=== PATIENT | female | born 1930 | race Caucasian/White ===

== ENCOUNTER 2017-11-09 11:46 | Emergency (ER) | payer OTHER ==
[~2017-11-09 11:46] MED LIST: ATORVASTATIN CA20 M1 PO; ATORVASTATIN CA40 M1 PO; CARVEDILOL12.5 M1 PO; CIPRO500 M1 PO; COLACE100 M1 PO; DICYCLOMINE HCL20 M1 PO; DILTIAZEM ER120 M2 PO; DURLAZA162.5 MG PO; ELIQUIS2.5 M1 PO; ELIQUIS5 M1 PO; FLAGYL250 M1 PO; JANUVIA100 M1 PO; LOSARTAN-HCTZ1 EACH PO; MECLIZINE HCL25 MG PO; METFORMIN HCL500 M4 PO; MINITRAN1 EAC2 TD; MONTELUKAST SOD10 M1 PO; OMEPRAZOLE20 M2 PO; PERCOCET 5-3251 EACH PO; SOTALOL80 M1 PO; TRADJENTA5 M1 PO
--- NOTE | 2017-11-09 11:58 | ED AMS/SEIZURE/WEAK/DIZZY ---
See Addendum History of Present Illness General Chief Complaint: Dizziness Stated Complaint: DIZZY Source: patient, family, PCP Exam Limitations: no limitations Vital Signs & Intake/Output Vital Signs & Intake/Output Vital Signs Date Time Temp Pulse Resp B/P B/P Pulse O2 O2 Flow FiO2 Mean Ox Delivery Rate 11/09 1341 98.8 98 18 134/64 99 11/09 1149 98.0 70 16 139/56 96 Room Air Allergies Coded Allergies: NO KNOWN ALLERGIES (11/26/11) NKA PER PERSANTINE ORDER SHEET - SJS Reconcile Medications Apixaban (Eliquis) 5 MG TABLET 1 TAB PO BID ATRIAL FIBRILLATION Atorvastatin Calcium 20 MG TABLET 1 TAB PO DAILY CHOLESTEROL (Reported) Carvedilol 25 MG TABLET 1 TAB PO BID HEART (Reported) Dicyclomine HCl 20 MG TABLET 1 TAB PO 4 TIMES/DAY PRN GI (Reported) Diltiazem HCl (Diltiazem 24HR ER) 180 MG CAP.ER.24H 1 CAP PO DAILY HEART ( Reported) Losartan/Hydrochlorothiazide (Losartan-Hctz 100-25 MG Tab) 100 MG-25 MG TABLET 1 TAB PO DAILY HEART (Reported) Melatonin 5 MG TABLET 1 TAB PO QPM SLEEP (Reported) Metformin HCl (Metformin HCl ER) 500 MG TAB.ER.24H 1 TAB PO DAILY DIABETES ( Reported) Montelukast Sodium 10 MG TABLET 1 TAB PO DAILY ALLERGIES (Reported) Omeprazole 20 MG CAPSULE.DR 1 CAP PO DAILY GI (Reported) Sitagliptin Phosphate (Januvia) 100 MG TABLET 1 TAB PO DAILY DIABETES ( Reported) Ubidecarenone (Co Q-10) 300 MG CAPSULE 1 CAP PO DAILY SUPPLEMENT (Reported) Triage Note: PER PT STARTED WITH DIZZYNESS WEDNESDAY WENT AWAY BUT CAME BACK THIS AM UNABLE TO STAND WELL, PT ALSO REPORTS RECENT FORGETFULNESS UNASURE WHY, WAS AT DR OFFICE THIS AM (DR SHARPE) BECAME SO DIZZY SENT TO ED FOR EVAL Triage Nurses Notes Reviewed? yes Onset: Abrupt Duration: day(s): (FEW) Timing: recent history Injury Environment: home Severity: mild, moderate Modifying Factors: Worsens With: movement. Associated Symptoms: ABDOMINAL PAIN HPI: This is an 87-year-old female with history of hypertension, dyslipidemia, vertigo, diabetes sent in by Dr. Jones office for chief complaint of dizziness on and off for the past several days. History of vertigo but she told the office staff that it felt different. She also complains of some right lower quadrant abdominal pain that has been on for a few days. No nausea or vomiting, fever or chills. No chest pain or shortness of breath. She states that she only feels dizzy when she gets up and walks around. No confusion or numbness or tingling. She denies any recent URI symptoms. She states that she only has a few pills of the medications that she takes for her vertigo but is unsure if she took them in the last few days. (Tabby Amezquita MD) Past History Travel History Traveled to [place] past 21 day No Medical History Any Pertinent Medical History? see below for history Neurological: vertigo EENT: NONE Cardiovascular: hypertension, hyperlipidemia Respiratory: NONE Gastrointestinal: GERD, irritable bowel syndrome Hepatic: NONE Renal: NONE Musculoskeletal: NONE Psychiatric: NONE Endocrine: diabetes History of MRSA: No History of VRE: No History of CDIFF: No Influenza Vaccine: 05/27/17 Surgical History Surgical History: appendectomy, hysterectomy Psychosocial History Who do you live with Patient/Self Services at Home None What is your primary language [place] Citizen Tobacco Use: Never used Family History Family History, If Any: Relation not specified for: *No pertinent family history Hx Contributory? No (Tabby Amezquita MD) Review of Systems Review of Systems Constitutional: Denies: chills, fever, malaise, weakness. EENTM: Reports: no symptoms. Respiratory: Reports: no symptoms. Cardiovascular: Reports: no symptoms. GI: Reports: abdominal pain. Denies: nausea, vomiting. Genitourinary: Reports: no symptoms. Musculoskeletal: Reports: no symptoms. Skin: Reports: no symptoms. Neurological/Psychological: Reports: see HPI (DIZZINESS). Hematologic/Endocrine: Denies: bruising, bleeding. Immunologic/Allergic: Reports: no symptoms. All Other Systems: Reviewed and Negative (Tabby Amezquita MD) Physical Exam Physical Exam General Appearance: well developed/nourished, alert, awake, mild distress Head: atraumatic, normal appearance Eyes: Bilateral: normal appearance, PERRL, EOMI, other (NO NYSTAGMUS). Ears, Nose, Throat: normal pharynx, hearing grossly normal Neck: normal inspection, supple, full range of motion Respiratory: normal breath sounds, chest non-tender, no respiratory distress Cardiovascular: regular rate/rhythm, normal peripheral pulses Gastrointestinal: normal bowel sounds, soft, tenderness (INIMAL RIGHT LOWER QUADRANT PA), NO REBOUND OR GUARDING Extremities: normal range of motion Neurologic/Psych: no motor/sensory deficits, awake, alert, oriented x 3 Skin: intact, normal color, warm/dry Core Measures ACS in differential dx? No CVA/TIA Diagnosis No Sepsis Present: No Sepsis Focused Exam Completed? No (Bia COLLINS,Tabby) Progress Differential Diagnosis: arrythmia, benign positional vertigo, CVA/stroke, dehydration, intracranial Hem., intracranial mass/tumor, presyncope, vertebrobasilar insuff Plan of Care: Orders Procedure Date/time Status URINALYSIS 11/09 1250 Complete TROPONIN LEVEL 11/09 1250 Complete COMPREHENSIVE METABOLIC PANEL 11/09 1250 Complete CBC WITHOUT DIFFERENTIAL 11/09 1250 Complete EKG 11/09 1148 Active Laboratory Tests 11/09/17 1416: Urine Color YEL, Urine Clarity CLEAR, Urine pH 7.0, Ur Specific King 1.010, Urine Protein NEG, Urine Ketones NEG, Urine Nitrite NEG, Urine Bilirubin NEG, Urine Urobilinogen 0.2, Ur Leukocyte Esterase NEG, Ur Microscopic EXAM NOT REQUIRED, Urine Hemoglobin NEG, Urine Glucose NEG 11/09/17 1258: Anion Gap 10, Estimated GFR > 60, BUN/Creatinine Ratio 41.3 H, Glucose 232 H, Calcium 9.3, Total Bilirubin 0.6, AST 18, ALT 28, Alkaline Phosphatase 85, Troponin I < 0.01, Total Protein 7.2, Albumin 3.8, Globulin 3.4, Albumin/ Globulin Ratio 1.1, CBC w Diff NO MAN DIFF REQ, RBC 3.31 L, MCV 102.6 H, MCH 35.2 H, MCHC 34.3, RDW 16.6 H, MPV 7.5, Gran % 79.5 H, Lymphocytes % 10.5 L, Monocytes % 8.5, Eosinophils % 1.4, Basophils % 0.1, Absolute Granulocytes 6.8 H, Absolute Lymphocytes 0.9 L, Absolute Monocytes 0.7 H, Absolute Eosinophils 0.1, Absolute Basophils 0 Diagnostic Imaging: Viewed by Me: CT Scan. Discussed w/RAD: CT Scan. Radiology Impression: PATIENT: KIERAN MONTALVO PRESENT AGE: 87 PATIENT ACCOUNT NO: [id number] : [birth year] LOCATION: [facility] ORDERING PHYSICIAN: Tabby Amezquita MD SERVICE DATE: 11/09/17 EXAM TYPE: CAT - CT ABD & PELVIS W/O IV CONTRAS EXAMINATION: CT ABDOMEN AND PELVIS WITHOUT CONTRAST CLINICAL INFORMATION: Right lower quadrant pain. COMPARISON: CT scan of the abdomen and pelvis dated 06/01/2017. TECHNIQUE: Multidetector volumetric imaging was performed from the superior aspect of the liver through the pubic symphysis. Sagittal and coronal reformatted images were obtained on the technologist's workstation. DLP: 303.3 mGy-cm FINDINGS: LUNG BASES: The visualized lung bases are unremarkable. LIVER, GALLBLADDER, AND BILIARY TREE: The liver is normal in size, shape, and attenuation. No focal hepatic lesion or biliary ductal dilatation is present. The gallbladder is surgically absent. PANCREAS: Unremarkable. SPLEEN: Unremarkable. ADRENAL GLANDS: Unremarkable. KIDNEYS AND URETERS: Stable bilateral renal cysts are present, in the mid and aspect of the right kidney and lower pole of the left No hydronephrosis, hydroureter, or calculi seen. No perinephric stranding. BLADDER: Unremarkable. GASTROINTESTINAL TRACT: The small bowel loops are unremarkable. Multiple diverticuli are present throughout the colon with no evidence of acute diverticulitis. The appendix is nonvisualized. ABDOMINAL WALL: No significant hernia is appreciated. LYMPH NODES : No lymphadenopathy is noted throughout.. VASCULAR: Calcified atherosclerotic plaque is present throughout the abdominal aorta, no aneurysmal dilation is noted. PELVIC VISCERA: Unremarkable. OSSEOUS STRUCTURES: Multilevel degenerative changes are present most prominent in the lumbar spine, no aggressive osseous lesions are noted. IMPRESSION: No acute findings are noted throughout, specifically no acute findings to suggest the etiology of the right lower quadrant pain are identified at this time. DICTATED BY: Albertina Huertas MD DATE/TIME DICTATED:11/09/171329 DRY YARD WORKER:EDUAR DATE/TIME TRANSCRIBED:11/09/171329 CONFIDENTIAL, DO NOT COPY WITHOUT APPROPRIATE AUTHORIZATION. <Electronically signed in Other Vendor System> SIGNED BY: Albertina Huertas MD 11/09/17 1343, PATIENT: KIERAN MONTALVO PRESENT AGE: 87 PATIENT ACCOUNT NO: [id number] : [birth year] LOCATION: ER ORDERING PHYSICIAN: Tabby Amezquita MD SERVICE DATE: 11/09/17-1154 EXAM TYPE: CAT - CT HEAD WO IV CONTRAST EXAMINATION: CT HEAD WITHOUT CONTRAST CLINICAL INFORMATION: Intractable dizziness, vertigo, and memory loss. Evaluate for cerebrovascular accident. COMPARISON: CT scan of the head 07/13/2016. TECHNIQUE: Contiguous axial imaging was performed from the skull base to vertex without intravenous administration of contrast. DLP: 620.91 mGy-cm FINDINGS: There is no acute intracranial hemorrhage or abnormal extra-axial collection. No intracranial mass effect or midline shift. Lateral and third ventricles are prominent and there is proportionate prominence of the subarachnoid spaces reflecting a moderate degree of global parenchymal volume loss. Ill-defined foci of hypoattenuation are visualized throughout the periventricular white matter that most likely represents a chronic manifestation of small vessel ischemia. Brice-white matter differentiation is otherwise grossly preserved and there is no evidence of acute territorial infarct. The calvarium and skull base are intact. Mastoid air cells and middle ear cavities are well aerated. The sphenoid sinus is nearly completely opacified. The remainder of the paranasal sinuses are well- aerated. IMPRESSION: There is moderate global parenchymal volume loss and numerous chronic small vessel ischemic changes throughout the periventricular white matter. Grossly no evidence of acute territorial infarct or hemorrhage. DICTATED BY: Nathanael Santos MD DATE/TIME DICTATED:11/09/171328 DRY YARD WORKER:EDUAR DATE/TIME TRANSCRIBED:11/09/171328 CONFIDENTIAL, DO NOT COPY WITHOUT APPROPRIATE AUTHORIZATION. <Electronically signed in Other Vendor System> SIGNED BY: Nathanael Santos MD 11/09/17 1341 Initial ED EKG: NSR Hand-Off Endorsed To: Waldemar Perez DO Endorsed Time: 1500 Pending: other (REEVALUATION AFTER IVF/MECLIZ) (Tabby Amezquita MD) Departure Departure Disposition: STILL A PATIENT Condition: Stable Clinical Impression Primary Impression: Dizziness Secondary Impressions: Abdominal pain, Dehydration Referrals: Adama Cabral MD (PCP/Family) Departure Forms: Customer Survey General Discharge Information (Tabby Amezquita MD) Departure Comments 11/09/17 3 PM The patient was signed out to me by Tabby Amezquita MD, reevaluate for vertigo. (Waldemar Perez DO)
[2017-11-09] MEDS ORDERED: ATORVASTATIN CA20 M1 PO (12:10)
[2017-11-09] MEDS ORDERED: CARVEDILOL25 M1 PO (12:11)
[2017-11-09] MEDS ORDERED: DILTIAZEM 24HR180 MG PO (12:12)
[2017-11-09] MEDS ORDERED: LOSARTAN-HCTZ1 EAC2 PO (12:12)
[2017-11-09] MEDS ORDERED: CO Q-10300 MG PO (12:13)
[2017-11-09] MEDS ORDERED: MELATONIN5 M7 PO (12:14)
[2017-11-09 13:07] LABS: ABSOLUTE BASOPHIL COUNT 0 /CUMM (0.0-0.2); ABSOLUTE EOSINOPHIL COUNT 0.1 /CUMM (0.0-0.7); ABSOLUTE GRANULOCYTE CT 6.8 /CUMM (1.4-6.5); ABSOLUTE LYMPH COUNT 0.9 /CUMM (1.2-3.4); ABSOLUTE MONOCYTE COUNT 0.7 /CUMM (0.10-0.60); BASOPHIL % 0.1 % (0.0-2.0); EOSINOPHIL % 1.4 % (0-5); GRANULOCYTE % 79.5 % (42.2-75.2); MEAN CORPUSCULAR HGB 35.2 PG (27.0-31.0); MEAN CORPUSCULAR HGB CONC 34.3 G/DL (33.0-37.0); MEAN CORPUSCULAR VOLUME 102.6 FL (81.0-99.0); MEAN PLATELET VOLUME 7.5 FL (7.4-10.4); PLATELET COUNT 271 /CUMM (130-400); RBC DISTRIBUTION WIDTH 16.6 % (11.5-14.5); RED BLOOD CELL CT 3.31 /CUMM (4.20-5.40); WHITE BLOOD CELL COUNT 8.5 /CUMM (4.8-10.8)
--- NOTE | 2017-11-09 13:41 | CT SCAN REPORT ---
EXAMINATION: CT HEAD WITHOUT CONTRAST CLINICAL INFORMATION: Intractable dizziness, vertigo, and memory loss. Evaluate for cerebrovascular accident. COMPARISON: CT scan of the head 07/13/2016. TECHNIQUE: Contiguous axial imaging was performed from the skull base to vertex without intravenous administration of contrast. DLP: 620.91 mGy-cm FINDINGS: There is no acute intracranial hemorrhage or abnormal extra-axial collection. No intracranial mass effect or midline shift. Lateral and third ventricles are prominent and there is proportionate prominence of the subarachnoid spaces reflecting a moderate degree of global parenchymal volume loss. Ill-defined foci of hypoattenuation are visualized throughout the periventricular white matter that most likely represents a chronic manifestation of small vessel ischemia. Brice-white matter differentiation is otherwise grossly preserved and there is no evidence of acute territorial infarct. The calvarium and skull base are intact. Mastoid air cells and middle ear cavities are well aerated. The sphenoid sinus is nearly completely opacified. The remainder of the paranasal sinuses are well-aerated. IMPRESSION: There is moderate global parenchymal volume loss and numerous chronic small vessel ischemic changes throughout the periventricular white matter. Grossly no evidence of acute territorial infarct or hemorrhage.
--- NOTE | 2017-11-09 13:43 | CT SCAN REPORT ---
EXAMINATION: CT ABDOMEN AND PELVIS WITHOUT CONTRAST CLINICAL INFORMATION: Right lower quadrant pain. COMPARISON: CT scan of the abdomen and pelvis dated 06/01/2017. TECHNIQUE: Multidetector volumetric imaging was performed from the superior aspect of the liver through the pubic symphysis. Sagittal and coronal reformatted images were obtained on the technologist's workstation. DLP: 303.3 mGy-cm FINDINGS: LUNG BASES: The visualized lung bases are unremarkable. LIVER, GALLBLADDER, AND BILIARY TREE: The liver is normal in size, shape, and attenuation. No focal hepatic lesion or biliary ductal dilatation is present. The gallbladder is surgically absent. PANCREAS: Unremarkable. SPLEEN: Unremarkable. ADRENAL GLANDS: Unremarkable. KIDNEYS AND URETERS: Stable bilateral renal cysts are present, in the mid and aspect of the right kidney and lower pole of the left No hydronephrosis, hydroureter, or calculi seen. No perinephric stranding. BLADDER: Unremarkable. GASTROINTESTINAL TRACT: The small bowel loops are unremarkable. Multiple diverticuli are present throughout the colon with no evidence of acute diverticulitis. The appendix is nonvisualized. ABDOMINAL WALL: No significant hernia is appreciated. LYMPH NODES: No lymphadenopathy is noted throughout.. VASCULAR: Calcified atherosclerotic plaque is present throughout the abdominal aorta, no aneurysmal dilation is noted. PELVIC VISCERA: Unremarkable. OSSEOUS STRUCTURES: Multilevel degenerative changes are present most prominent in the lumbar spine, no aggressive osseous lesions are noted. IMPRESSION: No acute findings are noted throughout, specifically no acute findings to suggest the etiology of the right lower quadrant pain are identified at this time.
[2017-11-09 16:45] VITALS: BP 126/82
== END 2017-11-09 18:45 ==
LOC: ERH 11:46
PROVIDERS: Emergency Medicine
DX: E86.0 Dehydration (principal); R42 Dizziness and giddiness; R10.31 Right lower quadrant pain
CPT/HCPCS: 74176; 81003; 93005; 93010; 96360

== ENCOUNTER 2018-02-27 13:07 | Emergency (ER) | payer OTHER ==
[~2018-02-27] VITALS: Ht 167.6 cm; Wt 61.7 kg
[~2018-02-27 13:07] MED LIST changes: +CARVEDILOL25 M1 PO; +CO Q-10300 MG PO; +DILTIAZEM 24HR180 MG PO; +LOSARTAN-HCTZ1 EAC2 PO; +MELATONIN5 M7 PO
--- NOTE | 2018-02-27 13:48 | ED GENERAL ADULT ---
History of Present Illness General Chief Complaint: General Adult Stated Complaint: HIGH BS TODAY Source: patient, old records Exam Limitations: no limitations Vital Signs & Intake/Output Vital Signs & Intake/Output Vital Signs Date Time Temp Pulse Resp B/P B/P Pulse O2 O2 Flow FiO2 Mean Ox Delivery Rate 02/27 1648 98.4 60 18 176/78 98 Room Air 02/27 1350 Room Air 02/27 1318 99.4 64 18 168/67 98 Room Air Allergies Coded Allergies: NO KNOWN ALLERGIES (11/26/11) NKA PER PERSANTINE ORDER SHEET - SJS Reconcile Medications Apixaban (Eliquis) 5 MG TABLET 1 TAB PO BID ATRIAL FIBRILLATION Atorvastatin Calcium 20 MG TABLET 1 TAB PO DAILY CHOLESTEROL (Reported) Carvedilol 25 MG TABLET 1 TAB PO BID HEART (Reported) Dicyclomine HCl 20 MG TABLET 1 TAB PO 4 TIMES/DAY PRN GI (Reported) Diltiazem HCl (Diltiazem 24HR ER) 180 MG CAP.ER.24H 1 CAP PO DAILY HEART ( Reported) Exenatide Microspheres (Bydureon Pen) (Unknown Strength) PEN.INJCTR (Unknown Dose) INJ QW UNKNOWN (Reported) Losartan/Hydrochlorothiazide (Losartan-Hctz 100-25 MG Tab) 100 MG-25 MG TABLET 1 TAB PO DAILY HEART (Reported) Melatonin 5 MG TABLET 1 TAB PO QPM SLEEP (Reported) Metformin HCl (Metformin HCl ER) 500 MG TAB.ER.24H 1 TAB PO DAILY DIABETES ( Reported) Montelukast Sodium 10 MG TABLET 1 TAB PO DAILY ALLERGIES (Reported) Omeprazole 20 MG CAPSULE.DR 1 CAP PO DAILY GI (Reported) Sitagliptin Phosphate (Januvia) 100 MG TABLET 1 TAB PO DAILY DIABETES ( Reported) Ubidecarenone (Co Q-10) 300 MG CAPSULE 1 CAP PO DAILY SUPPLEMENT (Reported) Triage Note: PT TO TRIAGE STATES THAT HER SUGAR HAS BEEN RUNNING HIGH, THIS AM OVER 400 PT IS NIDDM AND STATES THAT HER PMD STATED THAT HE MAY HAVE TO START HER ON INSULIN, FS AT TRIAGE 242. PT ALSO STATES THAT SHE HAS A HISTORY OF VERTIGO AND THAT SHE HAS BEEN FEELING DIZZY EVERYDAY, DENIES CP, ALSO COMPLAINS OF EXERTIONAL SOB, O2 SAT 98 % ON RA, DENIES COUGH, BUT STATES THAT SHE HAS ALLERGIES AND SNEEZES A LOT . Triage Nurses Notes Reviewed? yes Onset: Gradual Duration: day(s): Timing: recent history Injury Environment: home Severity: moderate HPI: 87YO FEMALE with hx of DM, HTN, vertio, IBS presents to ED complaining of hyperglycemia at home ealier today. She states that her primary care doctor has been managing her blood sugar has told her that she may require insulin due to her hyperglycemia. Today patient checked her blood sugar which was over 400. Patient also reports intermittent dizziness daily for the past several months, she is been told she has vertigo in the past, she is not any medication for this. Patient reports a fall associated with her dizziness about one week ago, she did not hit her head or lose consciousness, she reports no injury relating to the fall. Patient reports intermittent dyspnea with exertion and she also reports generalized abdominal pain that radiates up toward chest. She has intermittent episodes of these pains for several months which she attributes to her IBS. Patient states she had an episode earlier today prior to arrival. (Comfort Blake) Past History Travel History Traveled to [place] past 21 day No Medical History Any Pertinent Medical History? see below for history Neurological: vertigo EENT: NONE Cardiovascular: hypertension, hyperlipidemia Respiratory: NONE Gastrointestinal: GERD, irritable bowel syndrome Hepatic: NONE Renal: NONE Musculoskeletal: NONE Psychiatric: NONE Endocrine: diabetes History of MRSA: No History of VRE: No History of CDIFF: No Surgical History Surgical History: appendectomy, hysterectomy Psychosocial History Who do you live with Patient/Self Services at Home None What is your primary language Occitan Tobacco Use: Never used ETOH Use: denies use Illicit Drug Use: denies illicit drug use Family History Family History, If Any: Relation not specified for: *No pertinent family history Hx Contributory? No (Comfort Blake) Review of Systems Review of Systems Constitutional: Reports: see HPI. EENTM: Reports: no symptoms. Respiratory: Reports: see HPI. Cardiovascular: Reports: see HPI. GI: Reports: no symptoms. Genitourinary: Reports: no symptoms. Musculoskeletal: Reports: no symptoms. Skin: Reports: no symptoms. Neurological/Psychological: Reports: see HPI. Hematologic/Endocrine: Reports: see HPI. Immunologic/Allergic: Reports: no symptoms. All Other Systems: Reviewed and Negative (Comfort Blake) Physical Exam Physical Exam General Appearance: well developed/nourished, no apparent distress, alert, awake Head: atraumatic, normal appearance Eyes: Bilateral: normal appearance, PERRL, EOMI. Ears, Nose, Throat: normal pharynx, normal ENT inspection, hearing grossly normal Neck: normal inspection, supple, full range of motion, no midline tenderness Respiratory: normal breath sounds, no respiratory distress, lungs clear Cardiovascular: regular rate/rhythm, normal peripheral pulses Peripheral Pulses: 2+ radial (R), 2+ radial (L) Gastrointestinal: normal bowel sounds, soft, non-tender, no organomegaly Back: normal inspection, normal range of motion Extremities: normal inspection, normal range of motion Neurologic/Psych: awake, alert, oriented x 3, acupressurist II-XII nml as tested Skin: intact, normal color, warm/dry Core Measures ACS in differential dx? Yes CVA/TIA Diagnosis: No Sepsis Present: No Sepsis Focused Exam Completed? No (Munira NEAL,Comfort Contreras) Progress Differential Diagnoses I considered the following diagnoses in my evaluation of the patient: [ Hypoglycemia, electrolyte abnormality, intracranial hemorrhage/mass/lesion, vertigo, acute coronary syndrome] Plan of Care: Orders Procedure Date/time Status TROPONIN LEVEL 02/27 1640 Complete EKG 02/27 1640 Active URINALYSIS 02/27 133 Complete TROPONIN LEVEL 02/27 1330 Complete COMPREHENSIVE METABOLIC PANEL 02/27 133 Complete CBC WITHOUT DIFFERENTIAL 02/27 1330 Complete EKG 02/27 1330 Active Laboratory Tests 02/27/18 1633: Troponin I < 0.01 02/27/18 1420: Urine Color YEL, Urine Clarity CLEAR, Urine pH 6.5, Ur Specific Rumney 1.010, Urine Protein NEG, Urine Ketones NEG, Urine Nitrite NEG, Urine Bilirubin NEG, Urine Urobilinogen 0.2, Ur Leukocyte Esterase SMALL H, Ur Microscopic SEDIMENT EXAMINED, Urine RBC 1-3, Urine WBC 3-5 H, Ur Epithelial Cells RARE, Urine Bacteria FEW H, Urine Hemoglobin TRACE-INTACT, Urine Glucose NEG 02/27/18 1347: Anion Gap 11, Estimated GFR > 60, BUN/Creatinine Ratio 46.7 H, Glucose 219 H, Calcium 9.3, Total Bilirubin 0.8, AST 29, ALT 29, Alkaline Phosphatase 98, Troponin I < 0.01, Total Protein 7.4, Albumin 4.1, Globulin 3.3, Albumin/ Globulin Ratio 1.2, CBC w Diff NO MAN DIFF REQ, RBC 3.27 L, MCV 104.8 H, MCH 35.8 H, MCHC 34.1, RDW 17.0 H, MPV 8.1, Gran % 76.5 H, Lymphocytes % 11.0 L, Monocytes % 10.8 H, Eosinophils % 1.5, Basophils % 0.2, Absolute Granulocytes 5.4, Absolute Lymphocytes 0.8 L, Absolute Monocytes 0.8 H, Absolute Eosinophils 0.1, Absolute Basophils 0 Blood Sugar is stable at this time, no acute blood sugar reduction is necessary currently. Patient's labs are nonactionable, troponin enzyme negative, EKG in sinus rhythm. head CT scan shows no acute intracranial abnormality. Chest x-ray shows no abnormality. Given patient's chest/abdominal pain earlier today Will obtain repeat EKG and troponin. Patient has no abdominal tenderness, labs are stable, she has a history of IBS, patient had a abdominal CT scan within the past few months, for these reasons no repeat CT imaging of the abdomen was obtained today. Repeat EKG and troponin are stable. Patient is ambulatory here in the emergency Department without difficulty and without assistance. Patient typically dries and goes to the store on her own. I consult case management to see if we could provide the patient with home health services given her dizziness however patient is not a candidate for home health services. Patient to follow-up with her primary care doctor as well as leaf sorter Dr. Trejo regarding her blood sugar. He was given strict return precautions. The patient agrees with the plan of care. The patient was discussed with Dr. Velazquez who agrees with this plan. Diagnostic Imaging: Viewed by Me: Radiology Read, CT Scan. Discussed w/RAD: Radiology Read, CT Scan. Radiology Impression: PATIENT: KIERAN MONTALVO PRESENT AGE: 87 PATIENT ACCOUNT NO: [id number] : [birth year] LOCATION: [facility] ORDERING PHYSICIAN: Comfort NEAL SERVICE DATE: 02/27/18 EXAM TYPE: CAT - CT CERV SPINE WO IV CONTRAST; CT HEAD WO IV CONTRAST EXAMINATION: HEAD CT WITHOUT CONTRAST CERVICAL SPINE CT WITHOUT CONTRAST CLINICAL INFORMATION: Dizziness. Neck pain. Rule out fracture. Rule out intracranial hemorrhage. COMPARISON: Head CT dated 11/09/[address] dated 05/14/2013. TECHNIQUE: Contiguous axial imaging of the head was performed without the administration of IV contrast. Axial multidetector volumetric images were also performed through the cervical spine without contrast. Multiplanar reconstructed images in coronal and sagittal orientations were submitted. DOSE: 960.9 mGy-cm FINDINGS: HEAD: Assessment of the skull base is slightly limited due to patient motion. There is no evidence of acute intracranial hemorrhage or territorial infarction. No abnormal mass-effect or midline shift. No extra-axial fluid collections. Brice to white matter differentiation is well preserved. As on the prior study, there is relative enlargement of the lateral and third ventricles with proportional and prominence of the subarachnoid spaces, reflecting a moderate degree of parenchymal volume loss. Ill-defined foci of hypoattenuation in the subcortical and periventricular white matter are again noted and most likely due to chronic small vessel ischemia. The soft tissues and osseous structures are normal. Evaluation of the sinuses and mastoid air cells is limited by patient motion. CERVICAL SPINE: Vertebral body heights are normal. No fractures of the vertebral bodies or posterior elements. There is grade 2 anterolisthesis of C3 on C4 by 5 mm with severe bilateral facet arthropathy at C3-C4. There is more mild facet arthropathy at C2 on C3 (2 mm) with more moderate facet arthropathy bilaterally (right side greater than left). Reversal of the normal cervical lordosis at the level of C4-C5 is likely degenerative in nature. No acute malalignment is suspected. Degenerative changes and soft tissue calcification are present at the craniocervical and atlantoaxial articulations, though normal alignment is maintained. Intervertebral discs are narrowed at multiple levels with associated endplate and uncovertebral osteophytes. Degenerative disc disease is most severe at C3-C4, characterized by complete loss of intervertebral disc height, endplate sclerosis, endplate irregularity, and endplate osteophytes. More moderate degenerative disc disease is present at C4-C5 and C6-C7. Aside from the aforementioned facet arthropathy at C2-C3 and C3-C4, there is also marked facet arthropathy on the left at C4-C5. Mild canal narrowing is noted at C3-C4 and C4-C5 due to anterolisthesis of C3 on C4 and small posterior disc osteophytic protrusions. There is neural foraminal encroachment at C3-C4, C4-C5, and C6-C7 bilaterally. No significant paravertebral soft tissue swelling. Atherosclerotic calcifications are present in the carotid arteries. The thyroid gland is heterogeneously enlarged. A 2.3 cm nodule is present at the isthmus. Pleural parenchymal scarring is present at the lung apices. They specifically focus at the posterior aspect of the right lung apex is better seen on prior CT from 05/04/2015 and incompletely included on this study. IMPRESSION: 1. No acute intracranial pathology. Moderate global parenchymal volume loss with chronic small vessel ischemic changes in the periventricular white matter. Assessment of the skull base is somewhat limited due to motion artifact. 2. No acute fracture or acute malalignment in the cervical spine. 3. Severe degenerative disc disease and facet arthropathy at C3-C4 with grade 2 anterolisthesis of C3 on C4. This produces at least mild central canal narrowing and significant bilateral neural foraminal encroachment. More mild degrees of facet arthropathy and degenerative disease are present at other levels. DICTATED BY: Wes Sotelo MD DATE/TIME DICTATED:02/27/181634 HOOKER MACHINE TENDER:EDUAR DATE/TIME TRANSCRIBED:1634 CONFIDENTIAL, DO NOT COPY WITHOUT APPROPRIATE AUTHORIZATION. < Electronically signed in Other Vendor System> SIGNED BY: Wes Sotelo MD 02/27/18 165 CXR Impression: PATIENT: KIERAN MONTALVO PRESENT AGE: 87 PATIENT ACCOUNT NO: [id number] : [birth year] LOCATION: [facility] ORDERING PHYSICIAN: Comfort NEAL SERVICE DATE: 02/27/18 EXAM TYPE: RAD - XRY-CHEST XRAY, TWO VIEWS EXAMINATION: XR CHEST CLINICAL INFORMATION: Chest pain COMPARISON: June 02, 2017 and December 13, 2014 TECHNIQUE: 2 views of the chest were obtained. FINDINGS: Chronic scarring is seen within the right upper lobe. No acute parenchymal disease, pneumothorax, or pleural effusion. Heart normal size. No evidence of pulmonary edema. IMPRESSION: No acute disease. Right upper lobe pleural-parenchymal scarring. DICTATED BY: Dwaine Garcia MD DATE/TIME DICTATED:02/27/181506 HOOKER MACHINE TENDER:EDUAR DATE/TIME TRANSCRIBED:1506 CONFIDENTIAL, DO NOT COPY WITHOUT APPROPRIATE AUTHORIZATION. < Electronically signed in Other Vendor System> SIGNED BY: Dwaine Garcia MD 02/27/18 1512 Initial ED EKG: sinus rhythm @61bpm, LVH, nonspecific ST changes Prior EKG: unchanged (Comfort Blake) Departure Departure Disposition: HOME OR SELF CARE Condition: Stable Clinical Impression Primary Impression: Hyperglycemia Secondary Impressions: Abdominal pain Qualifiers: Abdominal location: generalized Qualified Code: R10.84 - Generalized abdominal pain Chest pain Qualifiers: Chest pain type: unspecified Qualified Code: R07.9 - Chest pain, unspecified Dizziness Referrals: Adama Cabral MD (PCP/Family) Additional Instructions: It is recommended for you to try lipo-flavonoid plus or dizziness. Follow-up with Dr. Trejo and your primary care doctor. Return if worsening symptoms or concerns. Please note that there might be incidental findings in your evaluation that are unrelated to the current emergency department visit. Please notify your primary care doctor about this emergency department visit in order to obtain and review all of the testing performed so that these incidental findings can be monitored as needed. If you had an x-ray performed, please understand that some fractures may not be seen on the initial set of x-rays. If your symptoms persist you might need a repeat set of x-rays to check for such a fracture. If you had a laceration evaluated, please understand that foreign bodies such as glass or wood may not be visible to the naked eye or on plain x-rays. If the wound becomes red, swollen, increasingly more painful or if there is any drainage from the wound, please have it reevaluated by a physician for the possibility of a retained foreign body. If you're unable to follow up as outlined in the discharge instructions please return to the emergency department. Thank you for choosing the [facility] Emergency Department for your care. It was a pleasure to serve you today. Departure Forms: Customer Survey General Discharge Information (Comfort Blake) PA/FAMILY MEDICINE CHAIR Co-Sign Statement Statement: ED Attending supervision documentation- x I saw and evaluated the patient. I have also reviewed all the pertinent lab results and diagnostic results. I agree with the findings and the plan of care as documented in the PA's/FAMILY MEDICINE CHAIR's documentation. [] I have reviewed the ED Record and agree with the PA's/FAMILY MEDICINE CHAIR's documentation. [] Additions or exceptions (if any) to the PAs/FAMILY MEDICINE CHAIR's note and plan are summarized below: [] (Marcus COLLINS,Lei) Critical Care Note Critical Care Note Critical Care Time: non-applicable (Comfort Blake)
[2018-02-27 13:59] LABS: ABSOLUTE BASOPHIL COUNT 0 /CUMM (0.0-0.2); ABSOLUTE EOSINOPHIL COUNT 0.1 /CUMM (0.0-0.7); ABSOLUTE GRANULOCYTE CT 5.4 /CUMM (1.4-6.5); ABSOLUTE LYMPH COUNT 0.8 /CUMM (1.2-3.4); ABSOLUTE MONOCYTE COUNT 0.8 /CUMM (0.10-0.60); BASOPHIL % 0.2 % (0.0-2.0); EOSINOPHIL % 1.5 % (0-5); GRANULOCYTE % 76.5 % (42.2-75.2); HEMATOCRIT 34.3 % (37-47); MEAN CORPUSCULAR HGB 35.8 PG (27.0-31.0); MEAN CORPUSCULAR HGB CONC 34.1 G/DL (33.0-37.0); MEAN CORPUSCULAR VOLUME 104.8 FL (81.0-99.0); MEAN PLATELET VOLUME 8.1 FL (7.4-10.4); PLATELET COUNT 231 /CUMM (130-400); RED BLOOD CELL CT 3.27 /CUMM (4.20-5.40)
[2018-02-27] MEDS ORDERED: BYDUREON P2 MG/0.65 INJ (14:25)
--- NOTE | 2018-02-27 15:12 | RADIOLOGY REPORT ---
EXAMINATION: XR CHEST CLINICAL INFORMATION: Chest pain COMPARISON: June 02, 2017 and December 13, 2014 TECHNIQUE: 2 views of the chest were obtained. FINDINGS: Chronic scarring is seen within the right upper lobe. No acute parenchymal disease, pneumothorax, or pleural effusion. Heart normal size. No evidence of pulmonary edema. IMPRESSION: No acute disease. Right upper lobe pleural-parenchymal scarring.
[2018-02-27 16:48] VITALS: BP 176/78
--- NOTE | 2018-02-27 16:52 | CT SCAN REPORT ---
EXAMINATION: HEAD CT WITHOUT CONTRAST CERVICAL SPINE CT WITHOUT CONTRAST CLINICAL INFORMATION: Dizziness. Neck pain. Rule out fracture. Rule out intracranial hemorrhage. COMPARISON: Head CT dated 11/09/[address] dated 05/14/2013. TECHNIQUE: Contiguous axial imaging of the head was performed without the administration of IV contrast. Axial multidetector volumetric images were also performed through the cervical spine without contrast. Multiplanar reconstructed images in coronal and sagittal orientations were submitted. DOSE: 960.9 mGy-cm FINDINGS: HEAD: Assessment of the skull base is slightly limited due to patient motion. There is no evidence of acute intracranial hemorrhage or territorial infarction. No abnormal mass-effect or midline shift. No extra-axial fluid collections. Brice to white matter differentiation is well preserved. As on the prior study, there is relative enlargement of the lateral and third ventricles with proportional and prominence of the subarachnoid spaces, reflecting a moderate degree of parenchymal volume loss. Ill-defined foci of hypoattenuation in the subcortical and periventricular white matter are again noted and most likely due to chronic small vessel ischemia. The soft tissues and osseous structures are normal. Evaluation of the sinuses and mastoid air cells is limited by patient motion. CERVICAL SPINE: Vertebral body heights are normal. No fractures of the vertebral bodies or posterior elements. There is grade 2 anterolisthesis of C3 on C4 by 5 mm with severe bilateral facet arthropathy at C3-C4. There is more mild facet arthropathy at C2 on C3 (2 mm) with more moderate facet arthropathy bilaterally (right side greater than left). Reversal of the normal cervical lordosis at the level of C4-C5 is likely degenerative in nature. No acute malalignment is suspected. Degenerative changes and soft tissue calcification are present at the craniocervical and atlantoaxial articulations, though normal alignment is maintained. Intervertebral discs are narrowed at multiple levels with associated endplate and uncovertebral osteophytes. Degenerative disc disease is most severe at C3-C4, characterized by complete loss of intervertebral disc height, endplate sclerosis, endplate irregularity, and endplate osteophytes. More moderate degenerative disc disease is present at C4-C5 and C6-C7. Aside from the aforementioned facet arthropathy at C2-C3 and C3-C4, there is also marked facet arthropathy on the left at C4-C5. Mild canal narrowing is noted at C3-C4 and C4-C5 due to anterolisthesis of C3 on C4 and small posterior disc osteophytic protrusions. There is neural foraminal encroachment at C3-C4, C4-C5, and C6-C7 bilaterally. No significant paravertebral soft tissue swelling. Atherosclerotic calcifications are present in the carotid arteries. The thyroid gland is heterogeneously enlarged. A 2.3 cm nodule is present at the isthmus. Pleural parenchymal scarring is present at the lung apices. They specifically focus at the posterior aspect of the right lung apex is better seen on prior CT from 05/04/2015 and incompletely included on this study. IMPRESSION: 1. No acute intracranial pathology. Moderate global parenchymal volume loss with chronic small vessel ischemic changes in the periventricular white matter. Assessment of the skull base is somewhat limited due to motion artifact. 2. No acute fracture or acute malalignment in the cervical spine. 3. Severe degenerative disc disease and facet arthropathy at C3-C4 with grade 2 anterolisthesis of C3 on C4. This produces at least mild central canal narrowing and significant bilateral neural foraminal encroachment. More mild degrees of facet arthropathy and degenerative disease are present at other levels.
== END 2018-02-27 17:45 ==
LOC: ERH 13:07
PROVIDERS: Physician Assistant
DX: E11.65 Type 2 diabetes mellitus with hyperglycemia (principal); R10.84 Generalized abdominal pain; R07.9 Chest pain, unspecified; R42 Dizziness and giddiness
CPT/HCPCS: 71046; 81001; 93005; 93010

== ENCOUNTER 2018-03-09 14:19 | Inpatient (IN) | payer OTHER ==
[~2018-03-09] VITALS: Ht 165.1 cm; Wt 55.4 kg
[~2018-03-09 14:19] MED LIST changes: +BYDUREON P2 MG/0.65 INJ; -DILTIAZEM 24HR180 MG PO
--- NOTE | 2018-03-09 14:34 | ED AMS/SEIZURE/WEAK/DIZZY ---
History of Present Illness General Chief Complaint: Dizziness Stated Complaint: DIZZY Source: patient Exam Limitations: no limitations Vital Signs & Intake/Output Vital Signs & Intake/Output Vital Signs Date Time Temp Pulse Resp B/P B/P Pulse O2 O2 Flow FiO2 Mean Ox Delivery Rate 03/09 1733 98.7 72 18 142/65 96 Room Air 03/09 1423 97.0 80 20 118/52 97 Room Air Allergies Coded Allergies: NO KNOWN ALLERGIES (11/26/11) NKA PER PERSANTINE ORDER SHEET - SJS Reconcile Medications Apixaban (Eliquis) 5 MG TABLET 1 TAB PO BID ATRIAL FIBRILLATION Atorvastatin Calcium 20 MG TABLET 1 TAB PO DAILY CHOLESTEROL (Reported) Carvedilol 25 MG TABLET 1 TAB PO BID HEART (Reported) Dicyclomine HCl 20 MG TABLET 1 TAB PO 4 TIMES/DAY PRN GI (Reported) Diltiazem HCl (Diltiazem 24HR ER) 180 MG CAP.ER.24H 1 CAP PO DAILY HEART ( Reported) Exenatide Microspheres (Bydureon Pen) (Unknown Strength) PEN.INJCTR (Unknown Dose) INJ QW UNKNOWN (Reported) Losartan/Hydrochlorothiazide (Losartan-Hctz 100-25 MG Tab) 100 MG-25 MG TABLET 1 TAB PO DAILY HEART (Reported) Melatonin 5 MG TABLET 1 TAB PO QPM SLEEP (Reported) Metformin HCl (Metformin HCl ER) 500 MG TAB.ER.24H 1 TAB PO DAILY DIABETES ( Reported) Montelukast Sodium 10 MG TABLET 1 TAB PO DAILY ALLERGIES (Reported) Omeprazole 20 MG CAPSULE.DR 1 CAP PO DAILY GI (Reported) Sitagliptin Phosphate (Januvia) 100 MG TABLET 1 TAB PO DAILY DIABETES ( Reported) Ubidecarenone (Co Q-10) 300 MG CAPSULE 1 CAP PO DAILY SUPPLEMENT (Reported) Triage Note: PT TO ED C/O FEELING DIZZY, WORSE THE LAST WEEK. H/O VERTIGO, HAS BEEN TAKING MEDS WITH NO RELIEF. PLACED IN W/C FOR COMFORT. Triage Nurses Notes Reviewed? yes Onset: Gradual Duration: constant Timing: remote history Severity: moderate Severity Numbers: 5 HPI: Patient is a 87-year-old female with a past medical history of hypertension hyperlipidemia vertigo GERD IBS and which old records indicate the patient was evaluated here 10 days ago for concerns of dizziness vertigo and elevated blood sugar, patient presents emergency room with continued room spinning sensation and vertigo and dizziness along with chronic right lower quadrant abdominal pain for the past 6 months. Patient states that she has had vertigo for approximately 2 years. Patient is also complaining of decreased by mouth intake due to persistent nausea. Patient denies any emesis. Patient was able tolerate breakfast this morning. No change in bowel habits denies any headache blurred vision facial droop neck pain or stiffness chest pain arm pain jaw pain dysuria hematuria vaginal bleeding or discharge. (Joshua Snow) Past History Travel History Traveled to [place] past 21 day No Medical History Any Pertinent Medical History? see below for history Neurological: vertigo EENT: NONE Cardiovascular: hypertension, hyperlipidemia Respiratory: NONE Gastrointestinal: GERD, irritable bowel syndrome Hepatic: NONE Renal: NONE Musculoskeletal: NONE Psychiatric: NONE Endocrine: diabetes History of MRSA: No History of VRE: No History of CDIFF: No Surgical History Surgical History: appendectomy, hysterectomy Psychosocial History Who do you live with Patient/Self Services at Home None What is your primary language Occitan Tobacco Use: Never used ETOH Use: denies use Illicit Drug Use: denies illicit drug use Family History Family History, If Any: Relation not specified for: *No pertinent family history Hx Contributory? No (Joshua Snow) Review of Systems Review of Systems Constitutional: Reports: no symptoms. EENTM: Reports: no symptoms. Respiratory: Reports: no symptoms. Cardiovascular: Reports: no symptoms. GI: Reports: see HPI, abdominal pain. Genitourinary: Reports: no symptoms. Musculoskeletal: Reports: no symptoms. Skin: Reports: no symptoms. Neurological/Psychological: Reports: no symptoms. Hematologic/Endocrine: Reports: no symptoms. Immunologic/Allergic: Reports: no symptoms. All Other Systems: Reviewed and Negative (Joshua Snow) Physical Exam Physical Exam General Appearance: no apparent distress, alert, comfortable Head: atraumatic Eyes: Bilateral: normal appearance, PERRL, EOMI. Ears, Nose, Throat: normal pharynx, normal ENT inspection, hearing grossly normal Neck: normal inspection Respiratory: normal breath sounds, chest non-tender, no respiratory distress Cardiovascular: regular rate/rhythm Gastrointestinal: normal bowel sounds, soft, non-tender Extremities: normal range of motion Neurologic/Psych: no motor/sensory deficits, awake, alert, oriented x 3, normal gait Skin: intact, normal color, warm/dry Core Measures ACS in differential dx? No CVA/TIA Diagnosis No Sepsis Present: No Sepsis Focused Exam Completed? No (Poly NEAL,Joshua) Progress Differential Diagnosis: arrythmia, alcohol intoxication, anemia, benign positional vertigo, CVA/stroke, dehydration, drug intoxication, encephalitis, electrolyte imbalance, GI bleed, hypoglycemia, hypoxia, intracranial Hem., intracranial mass/tumor, labrynthitis, meningitis, Meniere's disease, migraine SMALLS, multiple sclerosis, pneumonia, postural hypotension, presyncope, post- traumatic vertigo, sepsis, seizure disorder, subarachnoid Hem., UTI/pyelo, vertebrobasilar insuff Plan of Care: Orders Procedure Date/time Status Heart Healthy Diet 03/10 B Active ED Holding Orders 03/09 174 Active Admit to inpatient 03/09 174 Active Code Status 03/09 1742 Active Patient Data 03/09 1718 Active Add-on Test (ER Only) 03/09 1654 Active URINALYSIS 03/09 1606 Complete TROPONIN LEVEL 03/09 1537 Complete COMPREHENSIVE METABOLIC PANEL 03/09 1537 Complete CBC WITHOUT DIFFERENTIAL 03/09 1537 Complete EKG 03/09 1448 Active CULTURE,URINE 03/09 1409 Active Laboratory Tests 03/09/18 1614: Anion Gap 12, Estimated GFR > 60, BUN/Creatinine Ratio 31.4 H, Glucose 131 H, Calcium 9.3, Total Bilirubin 0.6, AST 25, ALT 33, Alkaline Phosphatase 89, Troponin I < 0.01, Total Protein 7.5, Albumin 4.2, Globulin 3.3, Albumin/ Globulin Ratio 1.3, CBC w Diff NO MAN DIFF REQ, RBC 3.69 L, MCV 105.0 H, MCH 35.4 H, MCHC 33.7, RDW 16.3 H, MPV 8.0, Gran % 79.6 H, Lymphocytes % 9.4 L, Monocytes % 10.2 H, Eosinophils % 0.6, Basophils % 0.2, Absolute Granulocytes 9.9 H, Absolute Lymphocytes 1.2, Absolute Monocytes 1.3 H, Absolute Eosinophils 0.1, Absolute Basophils 0 03/09/18 1407: Urine Color YEL, Urine Clarity HAZY H, Urine pH 6.0, Ur Specific [place] 1.010, Urine Protein NEG, Urine Ketones NEG, Urine Nitrite POS H, Urine Bilirubin NEG, Urine Urobilinogen 0.2, Ur Leukocyte Esterase MOD H, Ur Microscopic SEDIMENT EXAMINED, Urine WBC 5-10 H, Urine Bacteria MOD H, Urine Hemoglobin TRACE- INTACT, Urine Glucose NEG Microbiology 03/09 1409 URINE ROUT: Urine Culture - RECD Patient upon initial presentation is resting completely bedside no apparent distress patient had per old records from [address] of head and cervical spine there were unremarkable along with chest x-ray that was unremarkable patient was safely discharged home. Patient has no neurological or neurovascular deficit, moderate point tenderness to right lower quadrant however patient has remote appendectomy Patient declines pain medications when offered patient has unremarkable CT scan Patient is alert and oriented, CT scan was unremarkable however blood work is indicated a significant drop of sodium patient also has UTI Discussed admission with patient and family members were aware Diagnostic Imaging: Viewed by Me: CT Scan. Radiology Impression: no acute abnormality, no fracture Initial ED EKG: normal p-waves, normal QRS complex, 69 BPM,NSR Comments: PATIENT: KIERAN MONTALVO PRESENT AGE: 87 PATIENT ACCOUNT NO: [id number] : [birth year] LOCATION: [facility] ORDERING PHYSICIAN: Joshua NEAL SERVICE DATE: 03/09/18 EXAM TYPE: CAT - CT ABD & PELVIS W/O IV CONTRAS EXAMINATION: CT ABDOMEN AND PELVIS WITHOUT CONTRAST CLINICAL INFORMATION: Abdominal pain. COMPARISON: 11/09/2017. TECHNIQUE: Contiguous axial thin section helical images of the abdomen and pelvis were performed without oral or IV contrast. The data set was reformatted in the coronal and sagittal planes and reviewed on an independent workstation. DLP: 267 mGy-cm. FINDINGS: The visualized lung bases are clear. The visualized portions of the heart are unremarkable. The liver is of normal size and attenuation without focal lesions nor intrahepatic biliary ductal dilation. The patient is status post cholecystectomy. Surgical clips are present. The spleen, pancreas, adrenal glands are unremarkable. Both kidneys are of normal size and attenuation without hydronephrosis or nephrolithiasis. There is no abdominal free fluid. There is neither mesenteric nor retroperitoneal lymphadenopathy. There is sigmoid diverticulosis without evidence of diverticulitis; otherwise, unremarkable unopacified loops of small and large bowel are identified. There is no pelvic free fluid. The urinary bladder is unremarkable. There is neither pelvic nor inguinal lymphadenopathy. Bone windows: Neither sclerotic nor lytic bone lesions are identified. There is multilevel disc height loss. IMPRESSION: Sigmoid diverticulosis without evidence of diverticulitis. Status post cholecystectomy. DICTATED BY: David Figueroa MD DATE/TIME DICTATED:03/09/181613 DIRECTOR OF SPA AND GUEST EXPERIENCE:EDUAR (Joshua Snow) Departure Departure Disposition: STILL A PATIENT Condition: Stable Clinical Impression Primary Impression: Hyponatremia Secondary Impressions: Dizziness, UTI (urinary tract infection) Referrals: Adama Cabral MD (PCP/Family) Departure Forms: Customer Survey General Discharge Information Admission Note Spoke With: David Law MD Documentation of Exam: Documentation of any treatments & extenuating circumstances including Concerns Regarding Discharge (functional status, medication knowledge or non-compliance, living conditions, etc.) that warrant an admission rather than observation: [ Patient requires further evaluation of her acute hyponatremia repeat labs antibiotics IV fluids frequent neuro checks] (Joshua Snow) PA/STORAGE FACILITY HOUSEKEEPER Co-Sign Statement Statement: ED Attending supervision documentation- [] I saw and evaluated the patient. I have also reviewed all the pertinent lab results and diagnostic results. I agree with the findings and the plan of care as documented in the PA's/STORAGE FACILITY HOUSEKEEPER's documentation. [x] I have reviewed the ED Record and agree with the PA's/STORAGE FACILITY HOUSEKEEPER's documentation. [] Additions or exceptions (if any) to the PAs/STORAGE FACILITY HOUSEKEEPER's note and plan are summarized below: [] (Miguel Angel Berrios DO) Critical Care Note Critical Care Note Critical Care Time: 30-74 min (Joshua Snow)
[2018-03-09 16:22] LABS: ABSOLUTE BASOPHIL COUNT 0 /CUMM (0.0-0.2); ABSOLUTE EOSINOPHIL COUNT 0.1 /CUMM (0.0-0.7); ABSOLUTE GRANULOCYTE CT 9.9 /CUMM (1.4-6.5); ABSOLUTE LYMPH COUNT 1.2 /CUMM (1.2-3.4); ABSOLUTE MONOCYTE COUNT 1.3 /CUMM (0.10-0.60); BASOPHIL % 0.2 % (0.0-2.0); EOSINOPHIL % 0.6 % (0-5); GRANULOCYTE % 79.6 % (42.2-75.2); HEMATOCRIT 38.7 % (37-47); MEAN CORPUSCULAR HGB 35.4 PG (27.0-31.0); MEAN CORPUSCULAR HGB CONC 33.7 G/DL (33.0-37.0); PLATELET COUNT 300 /CUMM (130-400); RBC DISTRIBUTION WIDTH 16.3 % (11.5-14.5); RED BLOOD CELL CT 3.69 /CUMM (4.20-5.40); WHITE BLOOD CELL COUNT 12.4 /CUMM (4.8-10.8)
--- NOTE | 2018-03-09 16:28 | CT SCAN REPORT ---
EXAMINATION: CT ABDOMEN AND PELVIS WITHOUT CONTRAST CLINICAL INFORMATION: Abdominal pain. COMPARISON: 11/09/2017. TECHNIQUE: Contiguous axial thin section helical images of the abdomen and pelvis were performed without oral or IV contrast. The data set was reformatted in the coronal and sagittal planes and reviewed on an independent workstation. DLP: 267 mGy-cm. FINDINGS: The visualized lung bases are clear. The visualized portions of the heart are unremarkable. The liver is of normal size and attenuation without focal lesions nor intrahepatic biliary ductal dilation. The patient is status post cholecystectomy. Surgical clips are present. The spleen, pancreas, adrenal glands are unremarkable. Both kidneys are of normal size and attenuation without hydronephrosis or nephrolithiasis. There is no abdominal free fluid. There is neither mesenteric nor retroperitoneal lymphadenopathy. There is sigmoid diverticulosis without evidence of diverticulitis; otherwise, unremarkable unopacified loops of small and large bowel are identified. There is no pelvic free fluid. The urinary bladder is unremarkable. There is neither pelvic nor inguinal lymphadenopathy. Bone windows: Neither sclerotic nor lytic bone lesions are identified. There is multilevel disc height loss. IMPRESSION: Sigmoid diverticulosis without evidence of diverticulitis. Status post cholecystectomy.
--- NOTE | 2018-03-09 18:41 | History & Physical ---
Hollis Hobbs 03/09/18 184: General Information and HPI MD Statement: I have seen and personally examined KIERAN MONTALVO and documented this H&P. The patient is a 87 year old F who presented with a patient stated chief complaint of [vertigo, chronically]. Source of Information: patient Exam Limitations: confusion History of Present Illness: Ms Won is an 87F w/ PMH of HTN, HLD, Vertigo, GERD, IBS, Memory loss, Afib on eliquis recently evaluated for dizziness/vertigo/hyperglycemia in the ED presents with a 6month history of dizziness, spinning sensation like she is spinning around the room, nausea, 12 pound weight loss, RLQ tenderness and poor blood glucose control. Pt has baseline memory loss and was continually redirected during interview, preoccupied with if she has stomach cancer and if she can drive home. Pt states that the dizziness is not sudden onset but gradual , is only mildly relieved with meclizine, is associated w/ left neck pain, and is worse with movement. Pt states that she has fallen in the past due to the dizziness, with most recent fall 3-4 months ago after feeling dizzy in the garden. Pt does not experience auras or LOC with this dizziness. Has been to the ED back in October for the same complaint. Denies palpitations. States that she has lost some weight ~12 pounds over the past six months although states she is tolerating PO foods but has less of an appetite. Her in June and she states that she does not see family often, does not have a visiting nurse looking after her, feels sad at his passing. States she is compliant with her medications although has varied blood sugars from 100s-200s. Allergies: Denies Fam Hx: Denies Sx Hx: Hysterectomy Soc Hx: Denies smoking, denies alcohol use, denies recreation drug use. Worked at [employer]. ROS: POSITIVE: Weight loss 12 lbs, Nausea, Vertigo NEGATIVE: Fever/Chills/Chest Pain/Palpitations/SOB/Diarrhea/Vomiting/LE Edema/ Recent Trauma Allergies/Medications Allergies: Coded Allergies: NO KNOWN ALLERGIES (11/26/11) NKA PER PERSANTINE ORDER SHEET - S Home Med list Apixaban (Eliquis) 5 MG TABLET 1 TAB PO BID ATRIAL FIBRILLATION Atorvastatin Calcium 20 MG TABLET 1 TAB PO DAILY CHOLESTEROL (Reported) Carvedilol 25 MG TABLET 1 TAB PO BID HEART (Reported) Dicyclomine HCl 20 MG TABLET 1 TAB PO 4 TIMES/DAY PRN GI (Reported) Diltiazem HCl (Diltiazem 24HR ER) 180 MG CAP.ER.24H 1 CAP PO DAILY HEART ( Reported) Exenatide Microspheres (Bydureon Pen) (Unknown Strength) PEN.INJCTR (Unknown Dose) INJ QW UNKNOWN (Reported) Losartan/Hydrochlorothiazide (Losartan-Hctz 100-25 MG Tab) 100 MG-25 MG TABLET 1 TAB PO DAILY HEART (Reported) Melatonin 5 MG TABLET 1 TAB PO QPM SLEEP (Reported) Metformin HCl (Metformin HCl ER) 500 MG TAB.ER.24H 1 TAB PO DAILY DIABETES ( Reported) Montelukast Sodium 10 MG TABLET 1 TAB PO DAILY ALLERGIES (Reported) Omeprazole 20 MG CAPSULE.DR 1 CAP PO DAILY GI (Reported) Sitagliptin Phosphate (Januvia) 100 MG TABLET 1 TAB PO DAILY DIABETES ( Reported) Ubidecarenone (Co Q-10) 300 MG CAPSULE 1 CAP PO DAILY SUPPLEMENT (Reported) Past History Travel History Traveled to [place] past 21 day No Medical History Neurological: vertigo EENT: NONE Cardiovascular: hypertension, hyperlipidemia Respiratory: NONE Gastrointestinal: GERD, irritable bowel syndrome Hepatic: NONE Renal: NONE Musculoskeletal: NONE Psychiatric: NONE Endocrine: diabetes History of MRSA: No History of VRE: No History of CDIFF: No Surgical History Surgical History: appendectomy, hysterectomy Past Family/Social History Family History Relations & Conditions if any Relation not specified for: *No pertinent family history Psychosocial History Who Do You Live With? self Services at Home: None Primary Language: [place] ETOH Use: denies use Illicit Drug Use: denies illicit drug use Functional Ability ADLs Independent: dressing, eating, toileting, bathing. Review of Systems Review of Systems Constitutional: Reports: see HPI. Exam & Diagnostic Data Last 24 Hrs of Vital Signs/I&O Vital Signs Date Time Temp Pulse Resp B/P B/P Pulse O2 O2 Flow FiO2 Mean Ox Delivery Rate 03/09 2000 98.0 65 18 124/60 97 Room Air 03/09 1733 98.7 72 18 142/65 96 Room Air 03/09 1430 Room Air 03/09 1423 97.0 80 20 118/52 97 Room Air Intake & Output 03/09 1600 03/09 0800 03/09 0000 Intake Total Output Total Balance Patient 130 lb Weight Weight Estimated Measurement Method Physical Exam General Appearance Alert, Oriented X3, Cooperative, No Acute Distress Skin chronic venous stasis changes b/l LE Skin Temp/Moisture Exam: Warm/Dry Neck TTP, L paraspinal muscles Cardiovascular Regular Rate, Normal S1, Normal S2 Lungs Clear to Auscultation, Normal Air Movement Abdomen Soft, mild RLQ tenderness; questionably on ASIS vs Abdominal viscera Neurological Normal Speech, Cranial Nerves 3-12 NL Extremities No Edema Vascular Normal Pulses Last 24 Hrs of Labs/Dewayne: Laboratory Tests 03/09/18 1614: Anion Gap 12, Estimated GFR > 60, BUN/Creatinine Ratio 31.4 H, Glucose 131 H, Serum Osmolality 266 L, Uric Acid 4.2, Calcium 9.3, Phosphorus 3.6, Magnesium 1.7, Total Bilirubin 0.6, AST 25, ALT 33, Alkaline Phosphatase 89, Troponin I < 0.01, Total Protein 7.5, Albumin 4.2, Globulin 3.3, Albumin/Globulin Ratio 1.3, TSH 0.514, Thyroxine (T4) 9.4, Total T3 0.82 L, CBC w Diff NO MAN DIFF REQ, RBC 3.69 L, MCV 105.0 H, MCH 35.4 H, MCHC 33.7, RDW 16.3 H, MPV 8.0, Gran % 79.6 H, Lymphocytes % 9.4 L, Monocytes % 10.2 H, Eosinophils % 0.6, Basophils % 0.2, Absolute Granulocytes 9.9 H, Absolute Lymphocytes 1.2, Absolute Monocytes 1.3 H, Absolute Eosinophils 0.1, Absolute Basophils 0 03/09/18 1409: Urine Osmolality 253 L, Ur Random Creatinine 25.4, Ur Random Sodium 44, Ur Random Potassium 22.0, Fraction Sodium Excret 1.0 03/09/18 1407: Urine Color YEL, Urine Clarity HAZY H, Urine pH 6.0, Ur Specific [place] 1.010, Urine Protein NEG, Urine Ketones NEG, Urine Nitrite POS H, Urine Bilirubin NEG, Urine Urobilinogen 0.2, Ur Leukocyte Esterase MOD H, Ur Microscopic SEDIMENT EXAMINED, Urine WBC 5-10 H, Urine Bacteria MOD H, Urine Hemoglobin TRACE- INTACT, Urine Glucose NEG Microbiology 03/09 1409 URINE ROUT: Urine Culture - RECD Assessment/Plan Assessment: Ms. Montalvo is a 87 yo F w/ PMH of HTN, HLD, Vertigo, Gerd, IBS, and was recentely evaluated in ER for dizziness/vertigo/hyperglycemia, presented to ER w/ spinning sensation, vertigo, dizziness, along w/ chronic ELQ ab pain for the past 6 months; was found to be hyponatremic to 122, leukocytosis of 12.4, +LE/Nitrites/ WBC w. mod bacteria on UA. Problem List 1. Hyponatremia 2. UTI 3. Vertigo 4. RLQ abdominal pain -ve CT findings #Hyponatremia -Serum OSM<285, urine OSM >100, Urine sp grav 1.01, FeNa 1.0, Manas 44, use of Losartan/HCTZ w/ Hyponatremia, normal TSH, without signs of hypovolemia -Will fluid restrict to 1000 -F/u BEP -Nephrology consult -Hold diuretics #UTI -Was given 1g ceftriaxone in ED. Will switch to PO amoxicillin as this has less fluid, pt vitally stable. -Will f/u CBC to see if leukocytosis resolves #Vertigo -Neurology consult -Will continue with home meds; was given scopolamine, meclizine in ED -PT eval for unresolved vertigo, recent falls #Abdominal Pain RLQ -Pt has history of irritable bowel disease; CT scan negative; will continue serial abdominal exams -Per exam, questionably more pain on hip. Will avoid NSAIDs for now, monitor. #DM -No oral hypoglycemics. Will put on ISS. #HTN, HLD, GERD, IBS -Continue home meds DVT PPx IV access Full Code Fluid Restrict-1000cc Dispo As Ranked By This Provider Problem List: 1. UTI (urinary tract infection) 2. Hyponatremia Core Measures/Misc (05/09) Acute Coronary Syndrome ACS Diagnosis: No Congestive Heart Failure Congestive Heart Failure Diagnosis No Cerebrovascular Accident CVA/TIA Diagnosis: No VTE (View Protocol) VTE Risk Factors Age>40 No Mechanical VTE Prophylaxis d/t N/A MechProphylax Ordered No VTE Pharm Prophylaxis d/t NA PharmProphylax ordered Sepsis (View protocol) Sepsis Present: No If YES complete Sepsis Event Note If YES complete Sepsis Event Note Hannah Mckeon 03/09/18 2008: Core Measures/Misc (05/09) Sepsis (View protocol) If YES complete Sepsis Event Note If YES complete Sepsis Event Note Resident Review Statement Resident Statement: examined this patient, discussed with internet marketing specialist, agreed with internet marketing specialist, discussed with family, reviewed EMR data (avail), discussed with nursing , discussed with case mgmt, reviewed images, amended to note Other Findings: Ms. Montalvo is a 87 yo F w/ PMH of HTN, HLD, Vertigo, Gerd, IBS, and was recentely evaluated in ER for dizziness/vertigo/hyperglycemia, presented to ER w/ spinning sensation, vertigo, dizziness, along w/ chronic ELQ ab pain for the past [address] ab in ER which showed no acute process except sigmoidal diverticulosis without infection. Patient was also complaining of unresolved dizziness however she had no fall since last ER admission. During our clinical interaction, patient denied recent travel/sick contacts, fever/lightheadedness/diaphoresis/night sweat/weight change/cough/SOB/Chest Pain /Palpitation/bowel movement or urinary abnormality, or other skin/ musculoskeletal/neurological/mood disorders, or dietary/appetite change. -Smoking: never -Alcohol: never -Rec Drugs: never On admission, Vitals: stable afebrile, HR 72m RR 18, BP 142/65, 96% RA Physical exam -Gen.: AO x3, cooperative, no distress, -HEENT: NCAT, PERRL, EOMI, anicteric sclera, moist mucous membranes -Neck: Supple, no JVD, trachea midline, mild accessory respiratory muscle use -Cardio: Normal S1/S2 without significant murmurs/gallops/rubs -Pulmonary: grossly normal air movement w/ clear auscultation -Abdomen: Soft, nontender, nondistended, bowel sounds intact -Neuro: Awake and alert, cranial nerves II through XII grossly intact -Extremity: Normal pulses/capillary refill, some chronic venous stasis change but no cyanosis/clubbing/edema -CBC: Mild leukocytosis 12.4, H/H 14.1/40.7, PLT 300, with MCV 105 -BMP: Hyponatremia 122 of unclear etiology, CL 85, BUN 22, CR 2.7, glucose 131, -UA/Microbiology: Positive for leukoesterase/nitrites/WBC with moderate bacteria -Ab CT: Sigmoid diverticulosis without evidence of diverticulitis. Status post cholecystectomy. -EKG: NSR w/o significant ST-T abnormalities. -Last Echo: 05/2017 normal EF 70%. -Interventions in ER: Scopolamine patch/meclizine/Ativan 0.25/ceftriaxone 1 Problem list/Assessment/Hospital Course: #Hypotonic Hyponatremia, pending eval/rule out SIADH/Diuretic-induced Hyponatremia #UA +ve for LE/Nitrites/Bacteria w/o symptoms #Mild leukocytosis, reactive #Chronic Ab pain w/ -ve CT findings of acute etiology #PMH of HTN, HLD, Vertigo, Gerd, IBS - Admit to general medicine - Vitals per protocol, monitor I&O per protocol. - Novolog SS/AccuChek TIDAC. - Orthostatic Vital x 1 - Serum Osm <285, Urine OSM >100, U specifc grav 1.01, FeNa 1.0, Manas 44, use of Losartan/HCTZ w/ Hyponatremia, normal TSH, without signs of hypovolemia, thus at this point would need more workup. Eliquis, in rare cases, would also contribute to hyponatremia. Patient had no symptom at this point from hypoNa. - Pending Nephrology consult for hyponatremia. - Pending Neurology consult for unresolved vertigo. - Continue home meds except oral hypoglycemics and HCTZ - Will continue Amoxicillin for uncomplicated UTI - Pending urine culture - Pain per pathway DVT prophylaxis Eliquis + ALPS Diabetic Diet CC2 w/ fluid restriction 1000cc IV Access: Peripheral IV Full Code Thanh COLLINS,David 03/09/18 2303: Core Measures/Misc (05/09) Sepsis (View protocol) If YES complete Sepsis Event Note If YES complete Sepsis Event Note Attending MD Review Statement Attending Statement Attending MD Statement: examined this patient, discuss w/resident/PA/JUNIOR QA ANALYST, agreed w/resident/PA/JUNIOR QA ANALYST, discussed with family, reviewed EMR data (avail), discussed with nursing, reviewed images, amended to note Attending Assessment/Plan: The patient is an 87 yo female with h/o HTN, HL, Vertigo, IBS, afib (on Eliquis) , who presented in the EDfor evaluation of worsening vertigo that has been ongoing for several months. She also c/o some RLQ abdominal discomfort vertigo and 12 lb weight loss. She denies any LOC. This has been accompanied by poor blood sugar control. She has h/o hyponatremia, however on presentation had Na 122 (prior was 131 on03/05/18). Physical Exam: VS: T 97.0, P 80, R 20, BP 118/52, po 97% HEENT: eyes- PERRLA julio cesar- moist mucosa Neck: no JVD, no bruits Chest: clear Cor: RRR nl S1, S2 w/o murm Abd: BS+, soft NT, - masses or HSM Ext: no edema Impression/Plan: #Severe Vertigo- has been evaluated in past. Non-focal neurology exam. No nystagmus to suggest definite BPH. Hyponatremia may be contributing. This has been an ongoing problem for this patient and may have worsening in presence of hyponatremia, etc. Plan: Admit to medical floor. Review prior Neuro images and discuss. Neurology Consult. PT consult. #Hyponatremia- as above, baseline Na is 144, 31-136, now 122. Did get IV hydration in ED. Urine Na 44, U oxm >100, P osm < 285 on HCTZ. Appears euvolemic. Only new med is Eliquis which has had some reports of causing hyponatremie (0.21%), Plan: Agree with fluid restrict to 1000 cc/24 hours (did get fluid with IV antibiotic in ED as well). Nephrology consult- Dr. Madrid. Close follow-up of Na in morning. #UTI- on Ceftriaxone noted- 1 dose given in ED. Plan: Will Rx with Amoxaillin po pending urine culture (h/o Proteus in past that was sensitive) as appears to be uncomplicated UTI. Await urine C&S. #Atrial Fibrillation- HR stable. Plan: Continue Diltiazem/Apixaban. #EssentiaL HTN- Has been on Diltiazem/Losartan/HCTZ/Carvedilol. Plan: OK to hold HCTZ and give rest. #Hyperlipidemia- on Atorvastatin. Plan: Continue Atorvastatin. #DM2- sugars have been variable. Plan: Follow sugars and cover swtih insulin. Hold Sitabgliptin and Metformin. #GERD- on Omeprazole. Plan: Continue Omeprazole.
[2018-03-09 20:00] VITALS: BP 124/60
--- NOTE | 2018-03-10 06:04 | Admission Certification ---
Admission Certification Certification Statement - As attending physician, I certify that at the time of - admission, based on clinical presentation, severity of - symptoms, need for further diagnostic testing and - therapeutic interventions, and risk of adverse outcomes - without in-hospital treatment, in my clinical assessment, - this patient requires an acute hospital stay for a minimum - of two nights or longer. I have also considered psychsocial - factors such as support system, advanced age, financial - issues, cognitive issues, and failed out-patient treatments, - past re-admission history, safety of patient, and lack of - compliance as applicable. Specific rationale supporting this admission is: The patient presents with worsening vertigo and signficant worsening of hyponatremia (122). Needs admission for close observation of Na and evaluation by Nephrology & Neurology. PT evaluation. Treatment of UTI.
[2018-03-10 06:19] VITALS: BP 110/42
--- NOTE | 2018-03-10 07:13 | PN- Housestaff ---
Hollis Hobbs 03/10/18711: Subjective Follow-up For: Hyponatremia Subjective: Patient seen and examined at bedside. Patient states that she feels okay, continually asks about if Tylenol that she takes at night will cause her to have low salt. Patient also states that she is still dizzy, although is less dizzy when sitting still, more dizzy with movement. Also continues to complain of some right lower quadrant pain, although points towards the hip near the anterior superior iliac spine. Patient denies any pain, denies any falls, denies any urinary symptoms. No fever/chills/night sweats/chest pain/lower extremity edema Review of Systems Constitutional: Reports: see HPI. Objective Last 24 Hrs of Vital Signs/I&O Vital Signs Date Time Temp Pulse Resp B/P B/P Pulse O2 O2 Flow FiO2 Mean Ox Delivery Rate 03/10 06 98.0 69 20 110/42 96 Room Air 03/09 2000 98.0 65 18 124/60 97 Room Air 03/09 1733 98.7 72 18 142/65 96 Room Air 03/09 1430 Room Air 03/09 1423 97.0 80 20 118/52 97 Room Air Intake & Output 03/10 1600 03/10 0800 03/10 0000 Intake Total Output Total Balance Patient 125 lb Weight Weight Bed scale Measurement Method Physical Exam General Appearance: Alert, Oriented X3, Cooperative, No Acute Distress, anxious Skin: No Rashes Skin Temp/Moisture Exam: Warm/Dry Cardiovascular: Regular Rate, Normal S1, Normal S2 Lungs: Clear to Auscultation, Normal Air Movement Abdomen: Soft, RLQ tenderness; mild Neurological: Normal Speech, Strength at 5/5 X4 Ext, Sensation Intact Extremities: No Edema Vascular: Normal Pulses Current Medications: Current Medications Sig/Sheila Start time Last Medication Dose Route Stop Time Status Admin Acetaminophen 650 MG Q6P PRN 03/09 1915 AC PO Amlodipine Besylate 10 MG DAILY 03/11 09 UNVr PO Amoxicillin 500 MG TID 03/09 2100 AC 03/10 PO 03/11 1401 1307 Apixaban 2.5 MG BID 03/10 2100 UNVr PO Apixaban 5 MG BID 03/09 2100 DC 03/10 PO 09 Atorvastatin Calcium 20 MG 1700 03/10 1700 AC PO Carvedilol 25 MG BID 03/09 2100 AC 03/10 PO 0926 Ceftriaxone Sodium 0 .STK-MED ONE 03/09 1724 DC .ROUTE Ceftriaxone Sodium 1,000 MG ONCE ONE 03/09 1700 DC 03/09 IV 03/09 1701 1730 Dicyclomine HCl 20 MG 4 TIMES/DAY PRN 03/09 1930 AC PO Diltiazem HCl 180 MG DAILY 03/10 0900 DC 03/10 PO 0926 Insulin Aspart 0 TIDAC 03/10 0800 AC 03/10 SC 1307 Lorazepam 0.25 MG ONCE ONE 03/09 1600 DC 03/09 PO 03/09 1601 1631 Losartan Potassium 100 MG DAILY 03/10 0900 AC 03/10 PO 0926 Meclizine HCl 25 MG ONCE ONE 03/09 1600 DC 03/09 PO 03/09 1601 1631 Meclizine HCl 0 .STK-MED ONE 03/09 1559 NM PO Melatonin 5 MG QPM 03/09 2100 NM PO Melatonin 5 MG QPM PRN 03/09 2045 AC 03/09 PO 2244 Montelukast Sodium 10 MG DAILY 03/10 0900 03/10 PO 0926 Omeprazole 20 MG DAILY 03/10 0900 AC 03/10 PO 0926 Ondansetron HCl 4 MG ONCE ONE 03/09 1600 DC 03/09 PO 03/09 1601 1631 Ondansetron HCl 0 .STK-MED ONE 03/09 1559 NM PO Scopolamine HBr 1 PAT ONE ONE 03/09 1600 DC 03/09 TOP 03/09 1601 1631 Scopolamine HBr 0 .STK-MED ONE 03/[address] [facility] Last 24 Hrs of Lab/Dewayne Results Last 24 Hrs of Labs/Mics: Laboratory Tests 03/10/18 0634: Anion Gap 11, Estimated GFR > 60, BUN/Creatinine Ratio 27.5 H, Cortisol AM Sample 10.8, CBC w Diff NO MAN DIFF REQ, RBC 3.46 L, MCV 105.0 H, MCH 35.5 H, MCHC 33.8, RDW 16.4 H, MPV 8.6, Gran % 75.8 H, Lymphocytes % 10.3 L, Monocytes % 12.4 H, Eosinophils % 1.5, Basophils % 0, Absolute Granulocytes 6.1 , Absolute Lymphocytes 0.8 L, Absolute Monocytes 1.0 H, Absolute Eosinophils 0.1, Absolute Basophils 0 03/09/18 1614: Anion Gap 12, Estimated GFR > 60, BUN/Creatinine Ratio 31.4 H, Glucose 131 H, Serum Osmolality 266 L, Uric Acid 4.2, Calcium 9.3, Phosphorus 3.6, Magnesium 1.7, Total Bilirubin 0.6, AST 25, ALT 33, Alkaline Phosphatase 89, Troponin I < 0.01, Total Protein 7.5, Albumin 4.2, Globulin 3.3, Albumin/Globulin Ratio 1.3, TSH 0.514, Thyroxine (T4) 9.4, Total T3 0.82 L, CBC w Diff NO MAN DIFF REQ, RBC 3.69 L, MCV 105.0 H, MCH 35.4 H, MCHC 33.7, RDW 16.3 H, MPV 8.0, Gran % 79.6 H, Lymphocytes % 9.4 L, Monocytes % 10.2 H, Eosinophils % 0.6, Basophils % 0.2, Absolute Granulocytes 9.9 H, Absolute Lymphocytes 1.2, Absolute Monocytes 1.3 H, Absolute Eosinophils 0.1, Absolute Basophils 0 03/09/18 1409: Urine Osmolality 253 L, Ur Random Creatinine 25.4, Ur Random Sodium 44, Ur Random Potassium 22.0, Fraction Sodium Excret 1.0 03/09/18 1407: Urine Color YEL, Urine Clarity HAZY H, Urine pH 6.0, Ur Specific [place] 1.010, Urine Protein NEG, Urine Ketones NEG, Urine Nitrite POS H, Urine Bilirubin NEG, Urine Urobilinogen 0.2, Ur Leukocyte Esterase MOD H, Ur Microscopic SEDIMENT EXAMINED, Urine WBC 5-10 H, Urine Bacteria MOD H, Urine Hemoglobin TRACE- INTACT, Urine Glucose NEG Microbiology 03/09 1409 URINE ROUT: Urine Culture - RES GRAM NEGATIVE RODS Assessment/Plan Assessment: Ms. Upton is a 87 yo F w/ PMH of HTN, HLD, Vertigo, Gerd, IBS, and was recentely evaluated in ER for dizziness/vertigo/hyperglycemia, presented to ER w/ spinning sensation, vertigo, dizziness, along w/ chronic ELQ ab pain for the past 6 months; was found to be hyponatremic to 122, leukocytosis of 12.4, +LE/Nitrites/ WBC w. mod bacteria on UA. #Hyponatremia -Serum OSM<285, urine OSM >100, Urine sp grav 1.01, FeNa 1.0, Manas 44, use of Losartan/HCTZ w/ Hyponatremia, normal TSH, without signs of hypovolemia -Will fluid restrict to 1000cc -F/u BEP - Na from 122 to 125 today -Nephrology consult appreciated, will continue with fluid restrictions, q8 BMP, TTE and CXR -Hold diuretics #UTI - without suprapubic tenderness, leukocytosis - resolving -Was given 1g ceftriaxone in ED. Will switch to PO amoxicillin as this has less fluid, pt vitally stable. -WBC 12.4 --> 8.1 #Vertigo -Neurology consult - [facility] physiotherapy -Will continue with home meds; was given scopolamine, meclizine in ED -PT eval for unresolved vertigo, recent falls - states they will not see pt as she is funtionally at baseline #Abdominal Pain RLQ - stable -Pt has history of irritable bowel disease; CT scan negative; will continue serial abdominal exams -Per exam, questionably more pain on hip. Will avoid NSAIDs for now, monitor. #DM -No oral hypoglycemics. Will put on ISS. #HTN, HLD, GERD, IBS -Continue home meds DVT PPx IV access Full Code Fluid Restrict-1000cc Dispo Problem List: 1. Vertigo 2. UTI (urinary tract infection) Pain Ratin Pain Location: RLQ Pain Goal: Pain 4 or less Pain Plan: pathway Tomorrow's Labs & Rationales: BEP q8 to correct sodium no more than 7mEq/day KayleyNura oakleyeddie 03/10/18 1121: Attending MD Review Statement Attending Statement Attending MD Statement: examined this patient, discuss w/resident/PA/OUTPATIENT CODING SPECIALIST, agreed w/resident/PA/OUTPATIENT CODING SPECIALIST, discussed with family, reviewed EMR data (avail), discussed with nursing, discussed with case mgmt, reviewed images, amended to note Attending Assessment/Plan: Elderly female admitted here for dizziness and hyponatremia with UTI. Patient is on diuretics at home. Pateint NA 122>>125 on admission. She recently had chest xray and CT head negative for acute pathology. AAOX2 oriented, baseline. Afebrile. Urinalysis appear hazy and wbc. Diuretics are discontinued. Continue with antibtioic and follow urine culture. Nephrology consult for evalauiton of hyponatremia. Fluid restriction since admission, held diuretics Vertigo: Consider neurology consult if no improvement in dizziness. can trial of meclizine. Lives alone. Case management on board. gi/dvt prophyalxis full code
[2018-03-10 08:43] LABS: ABSOLUTE BASOPHIL COUNT 0 /CUMM (0.0-0.2); ABSOLUTE EOSINOPHIL COUNT 0.1 /CUMM (0.0-0.7); ABSOLUTE GRANULOCYTE CT 6.1 /CUMM (1.4-6.5); ABSOLUTE LYMPH COUNT 0.8 /CUMM (1.2-3.4); BASOPHIL % 0 % (0.0-2.0); EOSINOPHIL % 1.5 % (0-5); GRANULOCYTE % 75.8 % (42.2-75.2); HEMATOCRIT 36.3 % (37-47); MEAN CORPUSCULAR HGB 35.5 PG (27.0-31.0); MEAN CORPUSCULAR HGB CONC 33.8 G/DL (33.0-37.0); MEAN PLATELET VOLUME 8.6 FL (7.4-10.4); PLATELET COUNT 230 /CUMM (130-400); RBC DISTRIBUTION WIDTH 16.4 % (11.5-14.5); RED BLOOD CELL CT 3.46 /CUMM (4.20-5.40); WHITE BLOOD CELL COUNT 8.1 /CUMM (4.8-10.8)
--- NOTE | 2018-03-10 11:53 | Cons- Nephrology ---
See Addendum General Information and HPI Consulting Request Date of Consult: 03/10/18 Requested By: James Zaldivar MD Reason for Consult: Hyponatremia Source of Information: patient Exam Limitations: dementia History of Present Illness: The patient is an 87 y/o woman with a hx of HTN - on a thiazide diuretic, dementia, A fib on eliquis who presents with worsening vertigo. She was found to be hyponatremic on presentation for which Nephrology is consulted. The patient reports vertiginous symptoms for the last 6 months which have been worse in the last 2 weeks. She has had falls in the past as a result but none leading to LOC. She reports being compliant with her BP meds which include HCTZ. She denies decreased PO intake but has lost 12 lbs. She denies excessive fluid intake during this time. On presentation, BP 118/52 HR 80 - afebrile. Initial labs notable for Na 122 with glucose 131, K 4.3, serum osm 266, uric acid 4.2, AM Cortisol 10.8, TSH 0.514 with T4 9.4, and urine osm 253 with Manas [address] imaging of the A /P performed for additional complaint of abdominal pain - only notable for diverticulosis. In terms of treatment, not clear how much IVF she has gotten. She has been fluid restricted to 1L/day. Na now 125. UA suggestive of UTI for which she was started on Ceftriaxone. Allergies/Medications Allergies: Coded Allergies: NO KNOWN ALLERGIES (11/26/11) NKA PER PERSANTINE ORDER SHEET - [facility] Home Med List: Apixaban (Eliquis) 5 MG TABLET 1 TAB PO BID ATRIAL FIBRILLATION Atorvastatin Calcium 20 MG TABLET 1 TAB PO DAILY CHOLESTEROL (Reported) Carvedilol 25 MG TABLET 1 TAB PO BID HEART (Reported) Dicyclomine HCl 20 MG TABLET 1 TAB PO 4 TIMES/DAY PRN GI (Reported) Diltiazem HCl (Diltiazem 24HR ER) 180 MG CAP.ER.24H 1 CAP PO DAILY HEART ( Reported) Exenatide Microspheres (Bydureon Pen) (Unknown Strength) PEN.INJCTR (Unknown Dose) INJ QW UNKNOWN (Reported) Losartan/Hydrochlorothiazide (Losartan-Hctz 100-25 MG Tab) 100 MG-25 MG TABLET 1 TAB PO DAILY HEART (Reported) Melatonin 5 MG TABLET 1 TAB PO QPM SLEEP (Reported) Metformin HCl (Metformin HCl ER) 500 MG TAB.ER.24H 1 TAB PO DAILY DIABETES ( Reported) Montelukast Sodium 10 MG TABLET 1 TAB PO DAILY ALLERGIES (Reported) Omeprazole 20 MG CAPSULE.DR 1 CAP PO DAILY GI (Reported) Sitagliptin Phosphate (Januvia) 100 MG TABLET 1 TAB PO DAILY DIABETES ( Reported) Ubidecarenone (Co Q-10) 300 MG CAPSULE 1 CAP PO DAILY SUPPLEMENT (Reported) Current Medications: Current Medications Sig/Sheila Start time Last Medication Dose Route Stop Time Status Admin Acetaminophen 650 MG Q6P PRN 03/09 1915 AC PO Amoxicillin 500 MG TID 03/09 2100 AC 03/10 PO 03/11 1401 0927 Apixaban 5 MG BID 03/09 2100 AC 03/10 PO 0926 Atorvastatin Calcium 20 MG 1700 03/10 1700 AC PO Carvedilol 25 MG BID 03/09 2100 AC 03/10 PO 0926 Ceftriaxone Sodium 0 .STK-MED ONE 03/09 1724 DC .ROUTE Ceftriaxone Sodium 1,000 MG ONCE ONE 03/09 1700 DC 03/09 IV 03/09 1701 1730 Dicyclomine HCl 20 MG 4 TIMES/DAY PRN 03/09 1930 AC PO Diltiazem HCl 180 MG DAILY 03/10 09 AC 03/10 PO 0926 Insulin Aspart 0 TIDAC 03/10 0800 AC SC Lorazepam 0.25 MG ONCE ONE 03/09 1600 DC 03/09 PO 03/09 1601 1631 Losartan Potassium 100 MG DAILY 03/10 09 AC 03/10 PO 0926 Meclizine HCl 25 MG ONCE ONE 03/09 1600 DC 03/09 PO 03/09 1601 1631 Meclizine HCl 0 .STK-MED ONE 03/09 1559 DC PO Melatonin 5 MG QPM 03/09 2100 DC PO Melatonin 5 MG QPM PRN 03/09 2045 AC 03/09 PO 2244 Montelukast Sodium 10 MG DAILY 03/10 09 AC 03/10 PO 0926 Omeprazole 20 MG DAILY 03/10 0900 AC 03/10 PO 0926 Ondansetron HCl 4 MG ONCE ONE 03/09 1600 DC 03/09 PO 03/09 1601 1631 Ondansetron HCl 0 .STK-MED ONE 03/09 1559 DC PO Scopolamine HBr 1 PAT ONE ONE 03/09 1600 DC 03/09 TOP 03/09 1601 1631 Scopolamine HBr 0 .STK-MED ONE 03/09 1556 DC [facility] Review of Systems Review of Systems: Complete 14 point ROS neg except as per HPI - should note hx of dementia and tangential speech so ROS limited Past History Travel History Traveled to [place] past 21 day No Medical History Blood Transfusion Hx: No Neurological: vertigo EENT: allergies Cardiovascular: AFIB, hypertension, hyperlipidemia Respiratory: NONE Gastrointestinal: GERD, irritable bowel syndrome Hepatic: NONE Renal: NONE Musculoskeletal: NONE Psychiatric: NONE Endocrine: diabetes Blood Disorders: NONE Cancer(s): NONE PHYSICAL THERAPY AID/Reproductive: NONE Surgical History Surgical History: appendectomy, hysterectomy Family History Relations & Conditions If Any: Relation not specified for: *No pertinent family history Psychosocial History Where Do You Live? Home Who Do You Live With? self Services at Home: None Primary Language: Occitan Smoking Status: Never Smoked ETOH Use: denies use Illicit Drug Use: denies illicit drug use Functional Ability ADLs Independent: dressing, eating, toileting, bathing. Exam & Diagnostic Data Vital Signs and I&O Vital Signs Date Time Temp Pulse Resp B/P B/P Pulse O2 O2 Flow FiO2 Mean Ox Delivery Rate 03/10 0619 98.0 69 20 110/42 96 Room Air 03/09 2000 98.0 65 18 124/60 97 Room Air 03/09 1733 98.7 72 18 142/65 96 Room Air 03/09 1430 Room Air 03/09 1423 97.0 80 20 118/52 97 Room Air Intake & Output 03/10 0400 03/09 0400 03/08 0400 Intake Total Output Total Balance Patient 125 lb 130 lb Weight Weight Bed scale Estimated Measurement Method Physical Exam: Gen - ok appearing, pressured speech Head - NCAT Eyes - anicteric sclera, EOMI Neck - supple, no LAD CV - RRR, no m/r/g Chest - clear, no w/r/r Abd - soft, NTND Upper ext - warm, no edema Lower ext - warm, no edema Skin - no rash or jaundice Neuro - alert, conversive, tangential speech, difficult to determine orientation Results Pertinent Lab Results: Laboratory Tests 03/10 03/09 0634 1614 Chemistry Sodium (137 - 145 mmol/L) 125 L 122 L Potassium (3.5 - 5.1 mmol/L) 4.3 4.3 Chloride (98 - 107 mmol/L) 87 L 85 L Carbon Dioxide (22 - 30 mmol/L) 27 25 Anion Gap (5 - 16) 11 12 BUN (7 - 17 mg/dL) 22 H 22 H Creatinine (0.5 - 1.0 mg/dL) 0.8 0.7 Estimated GFR (>60 ml/min) > 60 > 60 BUN/Creatinine Ratio (7 - 25 %) 27.5 H 31.4 H Glucose (65 - 99 mg/dL) 131 H Serum Osmolality (285 - 295 MOSM/KG) 266 L Uric Acid (2.5 - 6.2 mg/dL) 4.2 Calcium (8.4 - 10.2 mg/dL) 9.3 Phosphorus (2.5 - 4.5 mg/dL) 3.6 Magnesium (1.6 - 2.3 mg/dL) 1.7 Total Bilirubin (0.2 - 1.3 mg/dL) 0.6 AST (14 - 36 U/L) 25 ALT (9 - 52 U/L) 33 Alkaline Phosphatase (<127 U/L) 89 Troponin I (< 0.11 ng/ml) < 0.01 Total Protein (6.3 - 8.2 g/dL) 7.5 Albumin (3.5 - 5.0 g/dL) 4.2 Globulin (1.9 - 4.2 gm/dL) 3.3 Albumin/Globulin Ratio (1.1 - 2.2 %) 1.3 TSH (0.270 - 4.200 uIU/mL) 0.514 Thyroxine (T4) (4.5 - 10.9 ug/dL) 9.4 Total T3 (0.97 - 1.69 ng/mL) 0.82 L Cortisol AM Sample (4.46 - 22.7 ug/dL) 10.8 Hematology CBC w Diff NO MAN DIFF REQ NO MAN DIFF REQ WBC (4.8 - 10.8 /CUMM) 8.1 12.4 H RBC (4.20 - 5.40 /CUMM) 3.46 L 3.69 L Hgb (12.0 - 16.0 G/DL) 12.3 13.1 Hct (37 - 47 %) 36.3 L 38.7 MCV (81.0 - 99.0 FL) 105.0 H 105.0 H MCH (27.0 - 31.0 PG) 35.5 H 35.4 H MCHC (33.0 - 37.0 G/DL) 33.8 33.7 RDW (11.5 - 14.5 %) 16.4 H 16.3 H Plt Count (130 - 400 /CUMM) 230 300 MPV (7.4 - 10.4 FL) 8.6 8.0 Gran % (42.2 - 75.2 %) 75.8 H 79.6 H Lymphocytes % (20.5 - 51.1 %) 10.3 L 9.4 L Monocytes % (1.7 - 9.3 %) 12.4 H 10.2 H Eosinophils % (0 - 5 %) 1.5 0.6 Basophils % (0.0 - 2.0 %) 0 0.2 Absolute Granulocytes (1.4 - 6.5 /CUMM) 6.1 9.9 H Absolute Lymphocytes (1.2 - 3.4 /CUMM) 0.8 L 1.2 Absolute Monocytes (0.10 - 0.60 /CUMM) 1.0 H 1.3 H Absolute Eosinophils (0.0 - 0.7 /CUMM) 0.1 0.1 Absolute Basophils (0.0 - 0.2 /CUMM) 0 0 03/09 03/09 1409 1407 Urines Urine Color (YEL,AMB,STR) YEL Urine Clarity (CLEAR) HAZY H Urine pH (5.0 - 8.0) 6.0 Ur Specific [place] (1.001 - 1.035) 1.010 Urine Protein (NEG,<30 MG/DL) NEG Urine Ketones (NEG) NEG Urine Nitrite (NEG) POS H Urine Bilirubin (NEG) NEG Urine Urobilinogen (0.1 - 1.0 EU/dl) 0.2 Ur Leukocyte Esterase (NEG) MOD H Ur Microscopic SEDIMENT EXAMINED Urine WBC (0 - 2 /HPF) 5-10 H Urine Bacteria (NEG/NONE) MOD H Urine Hemoglobin (NEG) TRACE-INTACT Urine Osmolality (300 - 1000 MOSM/KG) 253 L Ur Random Creatinine (mg/dL) 25.4 Ur Random Sodium (30 - 90 mmol/L) 44 Ur Random Potassium (mmol/L) 22.0 Fraction Sodium Excret (<1% %) 1.0 Urine Glucose (N MG/DL) NEG Imaging/Other Studies: CT reviewed Assessment/Plan Assessment/Recommendations Assessment: Hyponatremia - Hypo-osmolar - UOsm not maximally dilute suggestive of presence of ADH - not clear to me whether or not there is a hemodynamic stimulus for ADH secretion. Is improving with fluid restriction (which could be predicted by relatively low urine Na and K). No hx of tobacco use (lung ca a/w SIADH). No evidence of thyroid or adrenal disease based on labs. I'm a bit perplexed as to how to treat this but think that the current management with fluid restriction alone is reasonable. I do think it's worth checking a TTE to rule out CHF as a possible hemodynamic stimulus for ADH secretion. May consider chest imaging to rule out malignancy eventhough she's a non-smoker. There is no evidence of liver disease on imaging. Recommendations: -1L/day fluid restriction -OK to hold off on IVF for now -TTE, Chest X-ray -q8 BMP - goal correction 7meq/day Please call [phone] with ?'s
--- NOTE | 2018-03-10 13:06 | Cons- Neurology ---
General Information and HPI Consulting Request Date of Consult: 03/10/18 Requested By: Kayley COLLINS,James History of Present Illness: 87-year-old female whose history was obtained both from the patient, the chart and a close family member at the bedside. They described perhaps a two-year history of chronic dizzy sensations . When the patient gets dizzy, she becomes anxious and has prompted ER evaluation. There is been no recent trauma, fever, diplopia, dysarthria or appendicular symptomatology. She typically ambulates without appliance although does have a cane at home. The patient lives alone after the passing of her . Allergies/Medications Allergies: Coded Allergies: NO KNOWN ALLERGIES (11/26/11) NKA PER PERSANTINE ORDER SHEET - [facility] Home Med List: Apixaban (Eliquis) 5 MG TABLET 1 TAB PO BID ATRIAL FIBRILLATION Atorvastatin Calcium 20 MG TABLET 1 TAB PO DAILY CHOLESTEROL (Reported) Carvedilol 25 MG TABLET 1 TAB PO BID HEART (Reported) Dicyclomine HCl 20 MG TABLET 1 TAB PO 4 TIMES/DAY PRN GI (Reported) Diltiazem HCl (Diltiazem 24HR ER) 180 MG CAP.ER.24H 1 CAP PO DAILY HEART ( Reported) Exenatide Microspheres (Bydureon Pen) (Unknown Strength) PEN.INJCTR (Unknown Dose) INJ QW UNKNOWN (Reported) Losartan/Hydrochlorothiazide (Losartan-Hctz 100-25 MG Tab) 100 MG-25 MG TABLET 1 TAB PO DAILY HEART (Reported) Melatonin 5 MG TABLET 1 TAB PO QPM SLEEP (Reported) Metformin HCl (Metformin HCl ER) 500 MG TAB.ER.24H 1 TAB PO DAILY DIABETES ( Reported) Montelukast Sodium 10 MG TABLET 1 TAB PO DAILY ALLERGIES (Reported) Omeprazole 20 MG CAPSULE.DR 1 CAP PO DAILY GI (Reported) Sitagliptin Phosphate (Januvia) 100 MG TABLET 1 TAB PO DAILY DIABETES ( Reported) Ubidecarenone (Co Q-10) 300 MG CAPSULE 1 CAP PO DAILY SUPPLEMENT (Reported) Review of Systems Review of Systems: Notable for chronic dizzy sensations and arthralgias. There is been no fever, chills, rash, visual disturbance, slurring of speech, chest pain, vomiting, joint inflammation or abnormal bleeding Past History Travel History Traveled to [place] past 21 day No Medical History Blood Transfusion Hx: No Neurological: vertigo EENT: allergies Cardiovascular: AFIB, hypertension, hyperlipidemia Respiratory: NONE Gastrointestinal: GERD, irritable bowel syndrome Hepatic: NONE Renal: NONE Musculoskeletal: NONE Psychiatric: NONE Endocrine: diabetes Blood Disorders: NONE Cancer(s): NONE [employer]/Reproductive: NONE Surgical History Surgical History: appendectomy, hysterectomy Family History Relations & Conditions If Any: Relation not specified for: *No pertinent family history Psychosocial History Where Do You Live? Home Who Do You Live With? self Services at Home: None Primary Language: Salvadorean Smoking Status: Never Smoked ETOH Use: denies use Illicit Drug Use: denies illicit drug use Functional Ability ADLs Independent: dressing, eating, toileting, bathing. Exam & Diagnostic Data Vital Signs and I&O Vital Signs Date Time Temp Pulse Resp B/P B/P Pulse O2 O2 Flow FiO2 Mean Ox Delivery Rate 03/10 0619 98.0 69 20 110/42 96 Room Air 03/09 2000 98.0 65 18 124/60 97 Room Air 03/09 1733 98.7 72 18 142/65 96 Room Air 03/09 1430 Room Air 03/09 1423 97.0 80 20 118/52 97 Room Air Intake & Output 03/10 1600 03/10 0800 03/10 0000 Intake Total Output Total Balance Patient 125 lb Weight Weight Bed scale Measurement Method Pleasant, elderly, somewhat anxious female who was otherwise in no acute distress. She was awake, alert and cooperative. Speech was fluent. The head was normocephalic and atraumatic. Pupils were equal. Extraocular movements were full. There was no nystagmus. Facial strength and sensation was intact. Tongue was midline; there was no dysarthria. The motor examination showed no drift of the upper extremities. There was no focal or lateralizing weakness. Deep tendon reflexes were diffusely hypoactive. Plantar responses were flexor. There was no ataxia on [id number] testing. Joint position sense was intact. She was able to ambulate independently with a narrow base and reasonable arm swing. She was mildly tentative upon turning. Assessment/Plan Assessment: #1 chronic, subjective dizzy sensations and disequilibrium. Recent CT reported negative. #2 anxiety Recommendations: Would recommend physiotherapy evaluation and reassurance. Further neurologic workup will likely not alter management. Please feel free to call with any further questions. Consult Acknowledgment - Thank you for your consult request.
[2018-03-10] MEDS ORDERED: AMLODIPINE BESY10 M1 PO (13:34)
[2018-03-10] MEDS ORDERED: ELIQUIS2.5 M1 PO (13:34)
[2018-03-10 14:36] VITALS: BP 105/52
[2018-03-10 22:33] VITALS: BP 111/44
[2018-03-10 22:45] VITALS: BP 128/60
[2018-03-11 06:34] VITALS: BP 147/63
--- NOTE | 2018-03-11 07:13 | PN- Housestaff ---
See Addendum Subjective Follow-up For: Hyponatremia, UTI, Vertigo Subjective: Patient seen and examined at bedside. Patient continues to complain about right lower quadrant pain although continually points to her hip as opposed to belly. Patient continually talks about irritable bowel syndrome, asks if this can cause her vertigo. States that her vertigo has improved overnight. States that she does feel somewhat better, continue lasts about whether salt or milk can help with her hyponatremia. Reassured, easily redirectable. Denies fevers/chills/ night sweats/chest pain/abdominal pain/urinary symptoms/lower extremity edema Review of Systems Constitutional: Reports: see HPI. Objective Last 24 Hrs of Vital Signs/I&O Vital Signs Date Time Temp Pulse Resp B/P B/P Pulse O2 O2 Flow FiO2 Mean Ox Delivery Rate 03/11 0854 147/63 03/11 0853 147/63 03/11 0853 147/63 03/11 0634 97.9 62 20 147/63 96 Room Air 03/10 2245 66 128/60 03/10 2233 98.3 63 16 111/44 95 Room Air 03/10 2152 66 128/60 03/10 1436 98.0 63 16 105/52 97 Room Air Intake & Output 03/11 1600 03/11 0800 03/11 0000 Intake Total 100 450 Output Total 200 Balance 100 250 Intake, Oral 100 450 Output, Urine 200 Physical Exam General Appearance: Alert, Oriented X3, Cooperative, No Acute Distress Skin: No Rashes Skin Temp/Moisture Exam: Warm/Dry Cardiovascular: Regular Rate, Normal S1, Normal S2 Lungs: Clear to Auscultation, Normal Air Movement Abdomen: Soft, No Tenderness, RLQ/R HIP TENDERNESS Neurological: Normal Speech, Strength at 5/5 X4 Ext Extremities: No Edema Current Medications: Current Medications Sig/Sheila Start time Last Medication Dose Route Stop Time Status Admin Acetaminophen 650 MG Q6P PRN 03/09 1915 AC PO Amlodipine Besylate 10 MG DAILY 03/11 0900 AC 03/11 PO 0853 Amoxicillin 500 MG TID 03/09 2100 AC 03/11 PO 03/11 1401 0854 Apixaban 2.5 MG BID 03/10 2100 AC 03/11 PO 0854 Apixaban 5 MG BID 03/09 2100 DC 03/10 PO 0926 Atorvastatin Calcium 20 MG 1700 03/10 1700 AC 03/10 PO 1736 Carvedilol 25 MG BID 03/09 2100 AC 03/11 PO 0853 Dicyclomine HCl 20 MG 4 TIMES/DAY PRN 03/09 1930 AC 03/10 PO 2310 Diltiazem HCl 180 MG DAILY 03/10 0900 DC 03/10 PO 0926 Insulin Aspart 0 TIDAC 03/10 08 AC 03/11 SC 0853 Losartan Potassium 100 MG DAILY 03/10 09 AC 03/11 PO 0854 Melatonin 5 MG QPM PRN 03/09 2045 AC 03/10 PO 2310 Montelukast Sodium 10 MG DAILY 03/10 09 AC 03/11 PO 0854 Omeprazole 20 MG DAILY 03/10 09 AC 03/11 PO 0854 Patient Medication 1 ED ONE ONE 03/10 1800 DC 03/10 Teaching ED 03/10 1801 1900 Last 24 Hrs of Lab/[place] Results Last 24 Hrs of Labs/Mics: Laboratory Tests 03/11/18 06: Anion Gap 10, Estimated GFR > 60, BUN/Creatinine Ratio 36.7 H, Pro-B- Natriuretic Pept 216 H 03/10/181999: Anion Gap 9, Estimated GFR > 60, BUN/Creatinine Ratio 40.0 H Assessment/Plan Assessment: Ms. Upton is a 87 yo F w/ PMH of HTN, HLD, Vertigo, Gerd, IBS, and was recentely evaluated in ER for dizziness/vertigo/hyperglycemia, presented to ER w/ spinning sensation, vertigo, dizziness, along w/ chronic ELQ ab pain for the past 6 months; was found to be hyponatremic to 122, leukocytosis of 12.4, +LE/Nitrites/ WBC w. mod bacteria on UA. #Hyponatremia - resolving -Serum OSM<285, urine OSM >100, Urine sp grav 1.01, FeNa 1.0, Manas 44, use of Losartan/HCTZ w/ Hyponatremia, normal TSH, without signs of hypovolemia -Will fluid restrict to 800cc -F/u BEP - Na from 122->125->123->127 today. 2PM and 10PM BEP ordered. -Nephrology consult appreciated, will continue with fluid restrictions 800cc, q8 BMP -pro-BNP negative, no need for echo as not suspected HF -Hold diuretics #UTI - without suprapubic tenderness, leukocytosis - resolving -Was given 1g ceftriaxone in ED. Will switch to PO amoxicillin as this has less fluid, pt vitally stable. Currently on day 3 -WBC 12.4 --> 8.1 -Will f/u culture/sens; currently growing G- rods #Vertigo - stable -Neurology consult - [facility] physiotherapy -Will continue with home meds; was given scopolamine, meclizine in ED; on Dicyclomine currently -Watch with ambulation to prevent falls. -PT eval for unresolved vertigo, recent falls - states they will not see pt as she is funtionally at baseline #Abdominal Pain RLQ - stable -Pt has history of irritable bowel disease; CT scan negative; will continue serial abdominal exams -Per exam, questionably more pain on hip. Will avoid NSAIDs for now, monitor. #DM -No oral hypoglycemics. Will put on ISS. #HTN, HLD, GERD, IBS -Continue home meds DVT PPx IV access Full Code Fluid Restrict-800cc Dispo Problem List: 1. Vertigo 2. UTI (urinary tract infection) 3. Hyponatremia Pain Ratin Pain Location: RLQ/R hip Pain Goal: Pain 4 or less Pain Plan: pathway Tomorrow's Labs & Rationales: BEP- hyponatremia
--- NOTE | 2018-03-11 11:34 | PN- Nephrology ---
Assessment/Plan Nephrology Assessment: Hyponatremia - Hypo-osmolar - UOsm not maximally dilute suggestive of presence of ADH - not a clear hemodynamic stimulus for ADH secretion - likely SIADH. Slowly improving on fluid restriction. Addition of solute in the form of salt tabs should help her get above a sodium of 130. No evidence of thyroid or adrenal disease based on labs. Would check screening chest x-ray for malignancy. Suggestion: -800cc/day fluid restriction -Start 2g NaCl TID -Chest X-ray -Can likely hold off on TTE -q12 BMP - goal correction 7meq/day Please call [phone] with ?'s Subjective Subjective: Na 127 this AM Wants to discuss nephew's wedding Asking if she's going to be OK Asking why she's dizzy Objective Vital Signs and I&Os Vital Signs Date Time Temp Pulse Resp B/P B/P Pulse O2 O2 Flow FiO2 Mean Ox Delivery Rate 03/11 0854 147/63 03/11 0853 147/63 03/11 0853 147/63 03/11 0634 97.9 62 20 147/63 96 Room Air 03/10 2245 66 128/60 03/10 2233 98.3 63 16 111/44 95 Room Air 03/10 2152 66 128/60 03/10 1436 98.0 63 16 105/52 97 Room Air Intake & Output 03/11 1600 03/11 0400 03/10 1600 03/10 0400 03/09 1600 03/09 0400 Intake Total 100 450 600 Output Total 200 Balance 100 250 600 Intake, IV 0 Intake, Oral 100 450 600 Number 0 Bowel Movements Output, Urine 200 Patient 125 lb 130 lb Weight Weight Bed scale Estimated Measurement Method Physical Exam: Gen - ok appearing HEENT - supple CV - RRR, no m/r/g Chest - clear, no w/r/r Abd - soft, NTND Ext - warm, no edema Neuro - alert, oriented, tangential speech Current Medications: Current Medications Sig/Sheila Start time Last Medication Dose Route Stop Time Status Admin Acetaminophen 650 MG Q6P PRN 03/09 1915 AC PO Amlodipine Besylate 10 MG DAILY 03/11 0900 AC 03/11 PO 0853 Amoxicillin 500 MG TID 03/09 2100 AC 03/11 PO 03/11 1401 0854 Apixaban 2.5 MG BID 03/10 2100 AC 07/20 PO 0854 Apixaban 5 MG BID 03/09 2100 DC 03/10 PO 0926 Atorvastatin Calcium 20 MG 1700 03/10 1700 AC 03/10 PO 1736 Carvedilol 25 MG BID 03/09 2100 AC 03/11 PO 0853 Dicyclomine HCl 20 MG 4 TIMES/DAY PRN 03/09 1930 AC 03/10 PO 2310 Diltiazem HCl 180 MG DAILY 03/10 09 DC 03/10 PO 0926 Insulin Aspart 0 TIDAC 03/10 08 AC 03/11 SC 0853 Losartan Potassium 100 MG DAILY 03/10 09 AC 03/11 PO 0854 Melatonin 5 MG QPM PRN 03/09 2045 AC 03/10 PO 2310 Montelukast Sodium 10 MG DAILY 03/10 09 AC 03/11 PO 0854 Omeprazole 20 MG DAILY 03/10 09 AC 03/11 PO 0854 Patient Medication 1 ED ONE ONE 03/10 1800 DC 03/10 Teaching ED 03/10 1801 1900 Sodium Chloride 2,000 MG TID 03/11 1400 UNVr PO Results Pertinent Lab Results: Laboratory Tests 03/11 03/10 03/10 061999 0634 Chemistry Sodium (137 - 145 mmol/L) 127 L 123 L 125 L Potassium (3.5 - 5.1 mmol/L) 4.4 4.6 4.3 Chloride (98 - 107 mmol/L) 92 L 89 L 87 L Carbon Dioxide (22 - 30 mmol/L) 25 24 27 Anion Gap (5 - 16) 10 9 11 BUN (7 - 17 mg/dL) 22 H 28 H 22 H Creatinine (0.5 - 1.0 mg/dL) 0.6 0.7 0.8 Estimated GFR (>60 ml/min) > 60 > 60 > 60 BUN/Creatinine Ratio (7 - 25 %) 36.7 H 40.0 H 27.5 H Bzp-O-Zubkeuppohr Pept (<125 pg/mL) 216 H Cortisol AM Sample (4.46 - 22.7 ug/dL) 10.8 Hematology CBC w Diff NO MAN DIFF REQ WBC (4.8 - 10.8 /CUMM) 8.1 RBC (4.20 - 5.40 /CUMM) 3.46 L Hgb (12.0 - 16.0 G/DL) 12.3 Hct (37 - 47 %) 36.3 L MCV (81.0 - 99.0 FL) 105.0 H MCH (27.0 - 31.0 PG) 35.5 H MCHC (33.0 - 37.0 G/DL) 33.8 RDW (11.5 - 14.5 %) 16.4 H Plt Count (130 - 400 /CUMM) 230 MPV (7.4 - 10.4 FL) 8.6 Gran % (42.2 - 75.2 %) 75.8 H Lymphocytes % (20.5 - 51.1 %) 10.3 L Monocytes % (1.7 - 9.3 %) 12.4 H Eosinophils % (0 - 5 %) 1.5 Basophils % (0.0 - 2.0 %) 0 Absolute Granulocytes (1.4 - 6.5 /CUMM) 6.1 Absolute Lymphocytes (1.2 - 3.4 /CUMM) 0.8 L Absolute Monocytes (0.10 - 0.60 /CUMM) 1.0 H Absolute Eosinophils (0.0 - 0.7 /CUMM) 0.1 Absolute Basophils (0.0 - 0.2 /CUMM) 0 03/09 03/09 1614 1409 Chemistry Sodium (137 - 145 mmol/L) 122 L Potassium (3.5 - 5.1 mmol/L) 4.3 Chloride (98 - 107 mmol/L) 85 L Carbon Dioxide (22 - 30 mmol/L) 25 Anion Gap (5 - 16) 12 BUN (7 - 17 mg/dL) 22 H Creatinine (0.5 - 1.0 mg/dL) 0.7 Estimated GFR (>60 ml/min) > 60 BUN/Creatinine Ratio (7 - 25 %) 31.4 H Glucose (65 - 99 mg/dL) 131 H Serum Osmolality (285 - 295 MOSM/KG) 266 L Uric Acid (2.5 - 6.2 mg/dL) 4.2 Calcium (8.4 - 10.2 mg/dL) 9.3 Phosphorus (2.5 - 4.5 mg/dL) 3.6 Magnesium (1.6 - 2.3 mg/dL) 1.7 Total Bilirubin (0.2 - 1.3 mg/dL) 0.6 AST (14 - 36 U/L) 25 ALT (9 - 52 U/L) 33 Alkaline Phosphatase (<127 U/L) 89 Troponin I (< 0.11 ng/ml) < 0.01 Total Protein (6.3 - 8.2 g/dL) 7.5 Albumin (3.5 - 5.0 g/dL) 4.2 Globulin (1.9 - 4.2 gm/dL) 3.3 Albumin/Globulin Ratio (1.1 - 2.2 %) 1.3 TSH (0.270 - 4.200 uIU/mL) 0.514 Thyroxine (T4) (4.5 - 10.9 ug/dL) 9.4 Total T3 (0.97 - 1.69 ng/mL) 0.82 L Hematology CBC w Diff NO MAN DIFF REQ WBC (4.8 - 10.8 /CUMM) 12.4 H RBC (4.20 - 5.40 /CUMM) 3.69 L Hgb (12.0 - 16.0 G/DL) 13.1 Hct (37 - 47 %) 38.7 MCV (81.0 - 99.0 FL) 105.0 H MCH (27.0 - 31.0 PG) 35.4 H MCHC (33.0 - 37.0 G/DL) 33.7 RDW (11.5 - 14.5 %) 16.3 H Plt Count (130 - 400 /CUMM) 300 MPV (7.4 - 10.4 FL) 8.0 Gran % (42.2 - 75.2 %) 79.6 H Lymphocytes % (20.5 - 51.1 %) 9.4 L Monocytes % (1.7 - 9.3 %) 10.2 H Eosinophils % (0 - 5 %) 0.6 Basophils % (0.0 - 2.0 %) 0.2 Absolute Granulocytes (1.4 - 6.5 /CUMM) 9.9 H Absolute Lymphocytes (1.2 - 3.4 /CUMM) 1.2 Absolute Monocytes (0.10 - 0.60 /CUMM) 1.3 H Absolute Eosinophils (0.0 - 0.7 /CUMM) 0.1 Absolute Basophils (0.0 - 0.2 /CUMM) 0 Urines Urine Osmolality (300 - 1000 MOSM/KG) 253 L Ur Random Creatinine (mg/dL) 25.4 Ur Random Sodium (30 - 90 mmol/L) 44 Ur Random Potassium (mmol/L) 22.0 Fraction Sodium Excret (<1% %) 1.0 03/09 1407 Urines Urine Color (YEL,AMB,STR) YEL Urine Clarity (CLEAR) HAZY H Urine pH (5.0 - 8.0) 6.0 Ur Specific Hensley (1.001 - 1.035) 1.010 Urine Protein (NEG,<30 MG/DL) NEG Urine Ketones (NEG) NEG Urine Nitrite (NEG) POS H Urine Bilirubin (NEG) NEG Urine Urobilinogen (0.1 - 1.0 EU/dl) 0.2 Ur Leukocyte Esterase (NEG) MOD H Ur Microscopic SEDIMENT EXAMINED Urine WBC (0 - 2 /HPF) 5-10 H Urine Bacteria (NEG/NONE) MOD H Urine Hemoglobin (NEG) TRACE-INTACT Urine Glucose (N MG/DL) NEG Imaging/Other Studies: EXAM TYPE: CAT - CT ABD & PELVIS W/O IV CONTRAS EXAMINATION: CT ABDOMEN AND PELVIS WITHOUT CONTRAST CLINICAL INFORMATION: Abdominal pain. COMPARISON: 11/09/2017. TECHNIQUE: Contiguous axial thin section helical images of the abdomen and pelvis were performed without oral or IV contrast. The data set was reformatted in the coronal and sagittal planes and reviewed on an independent workstation. DLP: 267 mGy-cm. FINDINGS: The visualized lung bases are clear. The visualized portions of the heart are unremarkable. The liver is of normal size and attenuation without focal lesions nor intrahepatic biliary ductal dilation. The patient is status post cholecystectomy. Surgical clips are present. The spleen, pancreas, adrenal glands are unremarkable. Both kidneys are of normal size and attenuation without hydronephrosis or nephrolithiasis. There is no abdominal free fluid. There is neither mesenteric nor retroperitoneal lymphadenopathy. There is sigmoid diverticulosis without evidence of diverticulitis; otherwise, unremarkable unopacified loops of small and large bowel are identified. There is no pelvic free fluid. The urinary bladder is unremarkable. There is neither pelvic nor inguinal lymphadenopathy. Bone windows: Neither sclerotic nor lytic bone lesions are identified. There is multilevel disc height loss. IMPRESSION: Sigmoid diverticulosis without evidence of diverticulitis. Status post cholecystectomy.
[2018-03-11] MEDS ORDERED: COZAAR100 M1 PO (13:55)
--- NOTE | 2018-03-11 13:58 | Patient Discharge Instructions ---
Discharge Instructions General Discharge Information You were seen/treated for: HYPONATREMIA, VERTIGO Special Instructions: - Please follow up with your primary care physician within 1-2 weeks of discharge. Inform your primary care physician of this admission to [facility]. - Continue your current medications per discharge instructions. - Please watch for these problems: Fever, Chills, Nausea, Vomiting, Shortness of Breath, Productive Cough, Chest Pain/Discomfort, Abdominal Pain, Active Bleeding or Bloody urine/stool. Acute Coronary Syndrome Inclusion Criteria At DC or during hospital stay patient has or had the following: ACS DIAGNOSIS No Discharge Core Measures Meds if any: Prescribed or Continued at Discharge Meds if any: NOT Prescribed or Continued at Discharge Congestive Heart Failure Inclusion Criteria At DC or during hospital stay patient has or had the following: CHF DIAGNOSIS No Discharge Core Measures Meds if any: Prescribed or Continued at Discharge Meds if any: NOT Prescribed or Continued at Discharge Cerebrovascular accident Inclusion Criteria At DC or during hospital stay patient has or had the following: CVA/TIA Diagnosis No Discharge Core Measures Meds if any: Prescribed or Continued at Discharge Meds if any: NOT Prescribed or Continued at Discharge Venous thromboembolism Inclusion Criteria VTE Diagnosis No VTE Type NONE VTE Confirmed by (Test) NONE Discharge Core Measures - Per Current guidelines, there needs to be overlap - treatment for the first 5 days of Warfarin therapy. - If discharged on Warfarin prior to 5 days of - overlap therapy, the patient will need to be - assessed for post discharge needs including - *Post discharge parental anticoagulation - *Warfarin and/or parental anticoagulation education - *Follow up date to check INR post discharge At least 5 days overlap therapy as Inpatient No Meds if any: Prescribed or Continued at Discharge Note: Overlap Therapy is Warfarin and Anticoagulant Meds if any: NOT Prescribed or Continued at Discharge
[2018-03-11 15:10] VITALS: BP 108/82
[2018-03-12 06:12] VITALS: BP 152/58
--- NOTE | 2018-03-12 08:38 | PN- Housestaff ---
Francia COLLINS,Ashley 03/12/18 0838: Subjective Follow-up For: Hyponatremia Complaints: no complaints Subjective: Patient is seen and examined at the bedside. She is still feeling dizzy. She was asking why we restricted the fluids. She wanted to discuss about the her on medical problems. She wanted to know if she will be able to do all her activities by herself. We sit down together and I answered all the questions she had. Review of Systems Neurological/Psychological: Reports: weakness (Dizziness). Objective Last 24 Hrs of Vital Signs/I&O Vital Signs Date Time Temp Pulse Resp B/P B/P Pulse O2 O2 Flow FiO2 Mean Ox Delivery Rate 03/12 0840 70 152/58 03/12 0840 70 152/58 03/12 0840 70 152/58 03/12 0612 97.7 70 20 152/58 98 03/11 2023 98.4 71 18 124/54 03/11 1510 98.4 72 20 108/82 98 Room Air Intake & Output 03/12 1600 03/12 0800 03/12 0000 Intake Total 80 300 Output Total Balance 80 300 Intake, Oral 80 300 Patient 54.998 kg Weight Weight Bed scale Measurement Method Physical Exam General Appearance: Alert, Oriented X3, Cooperative, No Acute Distress Cardiovascular: Normal S1, Normal S2 Lungs: Clear to Auscultation, Normal Air Movement Abdomen: Soft, No Tenderness Current Medications: Current Medications Sig/Sheila Start time Last Medication Dose Route Stop Time Status Admin Acetaminophen 650 MG Q6P PRN 03/09 1915 AC PO Amlodipine Besylate 10 MG DAILY 03/11 09 AC 03/12 PO 0840 Amoxicillin 500 MG TID 03/09 2100 DC 03/11 PO 03/11 1401 1401 Apixaban 2.5 MG BID 03/10 2100 AC 03/12 PO 0840 Atorvastatin Calcium 20 MG 1700 03/10 1700 AC 03/11 PO 1626 Carvedilol 25 MG BID 03/09 2100 AC 03/12 PO 0840 Dicyclomine HCl 20 MG 4 TIMES/DAY PRN 03/09 1930 AC 03/10 PO 2310 Docusate Sodium 100 MG DAILY NEEDED PRN 03/12 0845 AC PO Insulin Aspart 0 TIDAC 03/10 08 AC 03/12 SC 0839 Losartan Potassium 100 MG DAILY 03/10 09 AC 03/12 PO 0840 Melatonin 5 MG .STK-MED ONE 03/11 2024 DC PO 03/11 2025 Melatonin 5 MG QPM PRN 03/09 2045 AC 03/11 PO 2024 Montelukast Sodium 10 MG DAILY 03/10 0900 AC 03/12 PO 0840 Omeprazole 20 MG DAILY 03/10 0900 AC 03/12 PO 0840 Patient Medication 1 ED ONE ONE 03/11 1600 NM 03/11 Teaching ED 03/11 1601 1627 Senna 187 MG AT BEDTIME 03/12 2100 AC PO Sodium Chloride 2,000 MG TID 03/11 1400 AC 03/12 PO 0840 Last 24 Hrs of Lab/Dewayne Results Last 24 Hrs of Labs/Mics: Laboratory Tests 03/12/18 0649: Anion Gap 11, Estimated GFR > 60, BUN/Creatinine Ratio 58.0 H 03/11/18 2200: Sodium Cancelled, Potassium Cancelled, Chloride Cancelled, Carbon Dioxide Cancelled, Anion Gap Cancelled, BUN Cancelled, Creatinine Cancelled, BUN/ Creatinine Ratio Cancelled 03/11/18 1829: Anion Gap 14, Estimated GFR > 60, BUN/Creatinine Ratio 40.0 H 03/11/18 1356: Anion Gap 15, Estimated GFR > 60, BUN/Creatinine Ratio 38.3 H Assessment/Plan Assessment: Ms. Upton is a 87 yo F w/ PMH of HTN, HLD, Vertigo, Gerd, IBS, and was recentely evaluated in ER for dizziness/vertigo/hyperglycemia, presented to ER w/ spinning sensation, vertigo, dizziness, along w/ chronic ELQ ab pain for the past 6 months; was found to be hyponatremic to 122, leukocytosis of 12.4, +LE/Nitrites/ WBC w. mod bacteria on UA. Vital signs-temperature 97.7, pulse 70 per minute, blood pressure 152/58, Blood workup showed -serum sodium 134, potassium 4.3, BUN 29, creatinine 0.5, Assessment and plan- * Patient is clinically improving and serum sodium level is 134. We will continue fluid restriction, weight 100 mL per day, 2 grams sodium chloride tablet 3 times a day. * We'll follow nephrology recommendation * Please continue the same treatment and will plan for discharge. * We will follow attending notes Problem List: 1. Hyponatremia 2. UTI (urinary tract infection) Pain Ratin Pain Location: Not applicable Pain Goal: Remain pain free Pain Plan: Not applicable Tomorrow's Labs & Rationales: BEP for repeat serum sodium DVT/Prophylaxis: mechanical, pharmacological Alexandra COLLINS,Amir 03/12/18 1326: Attending MD Review Statement Attending Statement Attending MD Statement: examined this patient, discuss w/resident/PA/E[employer]ER[employer] SPECIALIST, agreed w/resident/PA/E[employer]ER[employer] SPECIALIST, reviewed EMR data (avail), discussed with nursing Attending Assessment/Plan: Pt was seen and evaluated. reports dizziness. Was evaluated by Neuro --f/u yohana --likely d/c in am with home services
[2018-03-12 14:29] VITALS: BP 104/63
[2018-03-12 21:30] VITALS: BP 124/53
[2018-03-13 06:20] VITALS: BP 154/60
[2018-03-13 09:16] VITALS: BP 154/60
--- NOTE | 2018-03-13 09:21 | PN- Housestaff ---
Subjective Follow-up For: Hyponatremia, Vertigo Subjective: Patient seen and examined at bedside. Patient does state that she has vertigo, which is significantly improved since admission. Patient continuously asked about salt, and whether she should take oral salt pills or not, of note which patient was started on oral salt pills by nephrology recommendation on Wednesday, and will likely be continued outpatient on them. Patient was also informed that her antibiotic therapy had completed for the urinary tract infection. Denies fevers/chills/night sweats/chest pain/abdominal pain/urinary symptoms/lower extremity edema Review of Systems Constitutional: Reports: see HPI. Objective Last 24 Hrs of Vital Signs/I&O Vital Signs Date Time Temp Pulse Resp B/P B/P Pulse O2 O2 Flow FiO2 Mean Ox Delivery Rate 03/13 06 97.9 73 20 154/60 96 03/12 2130 99.3 78 20 124/53 94 Nasal 3.0L Cannula 03/12 1429 97.9 68 20 104/63 96 Room Air Intake & Output 03/13 1600 03/13 0800 03/13 0000 Intake Total 0 120 Output Total Balance 0 120 Intake, Oral 0 120 Patient 122 lb Weight Weight Bed scale Measurement Method Physical Exam General Appearance: Alert, Oriented X3, Cooperative, No Acute Distress Skin: No Rashes Skin Temp/Moisture Exam: Warm/Dry Cardiovascular: Regular Rate, Normal S1, Normal S2 Lungs: Clear to Auscultation, Normal Air Movement Abdomen: Soft, No Tenderness Neurological: Normal Speech, Strength at 5/5 X4 Ext Extremities: No Edema Current Medications: Current Medications Sig/Sheila Start time Last Medication Dose Route Stop Time Status Admin Acetaminophen 650 MG Q6P PRN 03/09 1915 AC PO Amlodipine Besylate 10 MG DAILY 03/11 09 AC 03/12 PO 0840 Apixaban 2.5 MG BID 03/10 2100 AC 03/12 PO 2114 Atorvastatin Calcium 20 MG 1700 03/10 1700 AC 03/12 PO 1712 Carvedilol 25 MG BID 03/09 2100 AC 03/12 PO 2115 Dicyclomine HCl 20 MG 4 TIMES/DAY PRN 03/09 1930 AC 03/12 PO 2115 Docusate Sodium 100 MG DAILY NEEDED PRN 03/12 0845 AC 03/12 PO 1053 Insulin Aspart 0 TIDAC 03/10 0800 AC 03/13 SC 0856 Losartan Potassium 100 MG DAILY 03/10 900 AC 03/12 PO 0840 Melatonin 5 MG .STK-MED ONE 03/12 2113 DC PO 03/12 2114 Melatonin 5 MG QPM PRN 03/09 2045 AC 03/12 PO 2113 Montelukast Sodium 10 MG DAILY 03/10 09 AC 03/12 PO 08 Omeprazole 20 MG DAILY 03/10 900 AC 03/12 PO 839 Senna 187 MG AT BEDTIME 03/12 2100 AC 03/12 PO 2113 Sodium Chloride 2,000 MG TID 03/11 1400 AC 03/12 PO 2114 Last 24 Hrs of Lab/Dewayne Results Last 24 Hrs of Labs/Mics: Laboratory Tests 03/13/18 0910: Sodium Pending, Potassium Pending, Chloride Pending, Carbon Dioxide Pending, Anion Gap Pending, BUN Pending, Creatinine Pending, BUN/Creatinine Ratio Pending 03/12/18 1755: Anion Gap 15, Estimated GFR > 60, BUN/Creatinine Ratio 42.9 H Assessment/Plan Assessment: Ms. Upton is a 87 yo F w/ PMH of HTN, HLD, Vertigo, Gerd, IBS, and was recentely evaluated in ER for dizziness/vertigo/hyperglycemia, presented to ER w/ spinning sensation, vertigo, dizziness, along w/ chronic ELQ ab pain for the past 6 months; was found to be hyponatremic to 122, leukocytosis of 12.4, +LE/Nitrites/ WBC w. mod bacteria on UA. #Hyponatremia - resolving -Serum OSM<285, urine OSM >100, Urine sp grav 1.01, FeNa 1.0, Manas 44, use of Losartan/HCTZ w/ Hyponatremia, normal TSH, without signs of hypovolemia -Will fluid restrict to 800cc -F/u BEP - Na from 122->125->123->127->127->130->134->138 today. Final BEP this morning to confirm normal sodium levels -Nephrology consult appreciated, will continue with fluid restrictions 800cc, q12 BMP -pro-BNP negative, no need for echo as not suspected HF -Hold diuretics #UTI - without suprapubic tenderness, leukocytosis - resolved -Was given 1g ceftriaxone in ED. Switched to PO amoxicillin as this has less fluid, pt vitally stable. Completed 3 day course on March 11. -WBC 12.4 --> 8.1 -Culture shows E. coli, sensitive to all. #Vertigo - stable -Neurology consult - [facility] physiotherapy -Will continue with home meds; was given scopolamine, meclizine in ED; on Dicyclomine currently -Watch with ambulation to prevent falls. -PT eval for unresolved vertigo, recent falls - states they will not see pt as she is funtionally at baseline #Abdominal Pain RLQ - stable -Pt has history of irritable bowel disease; CT scan negative; will continue serial abdominal exams -Per exam, questionably more pain on hip. Will avoid NSAIDs for now, monitor. #DM -No oral hypoglycemics. Will put on ISS. #HTN, HLD, GERD, IBS -Continue home meds DVT PPx IV access Full Code Fluid Restrict-800cc Dispo - to home with home health services, potentially today Problem List: 1. UTI (urinary tract infection) 2. Hyponatremia Pain Ratin Pain Location: na Pain Goal: Pain 4 or less Pain Plan: pathway Tomorrow's Labs & Rationales: na
[2018-03-13] MEDS ORDERED: DILTIAZEM 24HR180 MG PO (11:50)
[2018-03-13] MEDS ORDERED: COZAAR100 M1 PO (11:52)
[2018-03-13] MEDS ORDERED: ELIQUIS2.5 M1 PO (11:52)
--- NOTE | 2018-03-13 12:46 | Discharge Summary ---
Visit Information Visit Dates Admission Date: 03/09/18 Discharge Date: 03/13/18 Hospital Course Course Attending Physician: James Zaldivar MD Primary Care Physician: Misha COLLINS,[facility] Course: Ms. Upton is a 87 yo F w/ PMH of HTN, HLD, Vertigo, Gerd, IBS, and was recentely evaluated in ER for dizziness/vertigo/hyperglycemia, presented to ER w/ spinning sensation, vertigo, dizziness, along w/ chronic ELQ ab pain for the past [address] ab in ER which showed no acute process except sigmoidal diverticulosis without infection. Patient was also complaining of unresolved dizziness however she had no fall since last ER admission. During our clinical interaction, patient denied recent travel/sick contacts, fever/lightheadedness/diaphoresis/night sweat/weight change/cough/SOB/Chest Pain /Palpitation/bowel movement or urinary abnormality, or other skin/ musculoskeletal/neurological/mood disorders, or dietary/appetite change. -Smoking: never -Alcohol: never -Rec Drugs: never On admission, Vitals: stable afebrile, HR 72m RR 18, BP 142/65, 96% RA Physical exam -Gen.: AO x3, cooperative, no distress, -HEENT: NCAT, PERRL, EOMI, anicteric sclera, moist mucous membranes -Neck: Supple, no JVD, trachea midline, mild accessory respiratory muscle use -Cardio: Normal S1/S2 without significant murmurs/gallops/rubs -Pulmonary: grossly normal air movement w/ clear auscultation -Abdomen: Soft, nontender, nondistended, bowel sounds intact -Neuro: Awake and alert, cranial nerves II through XII grossly intact -Extremity: Normal pulses/capillary refill, some chronic venous stasis change but no cyanosis/clubbing/edema -CBC: Mild leukocytosis 12.4, H/H 14.1/40.7, PLT 300, with MCV 105 -BMP: Hyponatremia 122 of unclear etiology, CL 85, BUN 22, CR 2.7, glucose 131, -UA/Microbiology: Positive for leukoesterase/nitrites/WBC with moderate bacteria -Ab CT: Sigmoid diverticulosis without evidence of diverticulitis. Status post cholecystectomy. -EKG: NSR w/o significant ST-T abnormalities. -Last Echo: 05/2017 normal EF 70%. -Interventions in ER: Scopolamine patch/meclizine/Ativan 0.25/ceftriaxone 1 Patient was admitted to general medicine floors for hypotonic hyponatremia, and UTI. She is placed on fluid restriction to 1000 cc, hydrochlorothiazide was held, nephrology was consulted, neurology was consulted for vertigo, and she was switched from ceftriaxone to p.o. amoxicillin as amoxicillin is less liquid than ceftriaxone. Neurology had signed off on patient's causes of vertigo, with no central lesions and CT scan from last week showing no abnormalities. Her urine culture came back as E. coli sensitive to all, and she was continued on amoxicillin for a 3 day course which he completed inpatient without fevers or leukocytosis. She was further fluid restricted to 800 cc, given salt pills 2 g 3 times daily, and her sodium cyrus to 138 over 4 days. Her hydrochlorothiazide was held outpatient, to be adjusted by her primary care practitioner. Her vertigo remained stable, was controlled with scopolamine and meclizine. She was started on home health services as she felt like she could not take care of herself as adequately as before. She was discharged to follow-up with her primary care doctor in 1 week, off diuretics, with verbalized understanding of fluid restricted diet. She is given strict return precautions, and verbalized understanding of the Allergies: Coded Allergies: NO KNOWN ALLERGIES (11/26/11) NKA PER PERSANTINE ORDER SHEET - SJS Significant Procedures: 03/09 CT ABDOMEN AND PELVIS WITHOUT CONTRAST CLINICAL INFORMATION: Abdominal pain. COMPARISON: 11/09/2017. TECHNIQUE: Contiguous axial thin section helical images of the abdomen and pelvis were performed without oral or IV contrast. The data set was reformatted in the coronal and sagittal planes and reviewed on an independent workstation. DLP: 267 mGy-cm. FINDINGS: The visualized lung bases are clear. The visualized portions of the heart are unremarkable. The liver is of normal size and attenuation without focal lesions nor intrahepatic biliary ductal dilation. The patient is status post cholecystectomy. Surgical clips are present. The spleen, pancreas, adrenal glands are unremarkable. Both kidneys are of normal size and attenuation without hydronephrosis or nephrolithiasis. There is no abdominal free fluid. There is neither mesenteric nor retroperitoneal lymphadenopathy. There is sigmoid diverticulosis without evidence of diverticulitis; otherwise, unremarkable unopacified loops of small and large bowel are identified. There is no pelvic free fluid. The urinary bladder is unremarkable. There is neither pelvic nor inguinal lymphadenopathy. Bone windows: Neither sclerotic nor lytic bone lesions are identified. There is multilevel disc height loss. IMPRESSION: Sigmoid diverticulosis without evidence of diverticulitis. Status post cholecystectomy. Pertinent Lab Results: -Serum OSM<285, urine OSM >100, Urine sp grav 1.01, FeNa 1.0, Manas 44, use of Losartan/HCTZ w/ Hyponatremia, normal TSH, without signs of hypovolemia BEP - Na from 122->125->123->127->127->130->134->138->140 Disposition Summary Disposition Principal Diagnosis: #Hyperosmolar Hyponatremia - 2/2 HCTZ usage/polydipsia #UTI #Vertigo #T2DM #HTN #HLD #GERD #IBS Additional Diagnosis: as above Discharge Disposition: home health services Discharge Instructions General Discharge Information Code Status: Full Code Patient's Diet: As tolerated Patient's Activity: As tolerated Follow-Up Instructions/Appts: - Please follow up with your primary care physician within 1-2 weeks of discharge. Inform your primary care physician of this admission to [facility]. - Continue your current medications per discharge instructions. - Please watch for these problems: Fever, Chills, Nausea, Vomiting, Shortness of Breath, Productive Cough, Chest Pain/Discomfort, Abdominal Pain, Active Bleeding or Bloody urine/stool. Medications at Discharge Discharge Medications: Stop taking the following medications: Diltiazem HCl (Diltiazem 24HR ER) 180 MG CAP.ER.24H ORAL DAILY Qty = 90 Losartan/Hydrochlorothiazide (Losartan-Hctz 100-25 MG Tab) 100 MG-25 MG TABLET ORAL DAILY Qty = 90 Continue taking these medications: Omeprazole (Omeprazole) 20 MG CAPSULE.DR 1 Capsule ORAL DAILY Qty = 90 Comments: Last Taken: 03/13/18 Time: 9 AM Montelukast Sodium (Montelukast Sodium) 10 MG TABLET 1 Tablet ORAL DAILY Qty = 90 Comments: Last Taken: 03/13/18 Time: 9 AM Dicyclomine HCl (Dicyclomine HCl) 20 MG TABLET 1 Tablet ORAL 4 TIMES A DAY as needed for GI Qty = 360 Comments: Last Taken: 03/12/18 Time: 9 PM Sitagliptin Phosphate (Januvia) 100 MG TABLET 1 Tablet ORAL DAILY Qty = 90 Comments: NOT GIVEN AT THE HOSPITAL Metformin HCl (Metformin HCl ER) 500 MG TAB.ER.24H 1 Tablet ORAL DAILY Qty = 90 Comments: NOT GIVEN AT HOSPITAL Atorvastatin Calcium (Atorvastatin Calcium) 20 MG TABLET 1 Tablet ORAL DAILY Comments: Last Taken: 03/12/18 Time: 5 PM Carvedilol (Carvedilol) 25 MG TABLET 1 Tablet ORAL TWICE DAILY Qty = 180 Comments: Last Taken: 03/13/18 Time: 9 AM Ubidecarenone (Co Q-10) 300 MG CAPSULE 1 Capsule ORAL DAILY Comments: NOT GIVEN IN HOSPITAL Melatonin (Melatonin) 5 MG TABLET 1 Tablet ORAL Every night Comments: Last Taken: 03/12/18 Time: 9 PM Exenatide Microspheres (Bydureon Pen) (Unknown Strength) PEN.INJCTR Unknown Dose INJECTABLE Once a Week Qty = 12 Comments: NOT GIVEN IN HOSPITAL Amlodipine Besylate (Amlodipine Besylate) 10 MG TABLET 1 Tablet ORAL DAILY Comments: Last Taken: 03/13/18 Time: 9 AM Start taking the following new medications: Losartan (Cozaar) 100 MG TABLET 100 Milligram ORAL DAILY Qty = 30 No Refills Instructions: . Comments: Last Taken: 03/13/18 Time: 9 AM The following medications have been changed: Old: Apixaban (Eliquis) 2.5 MG TABLET 1 Tablet ORAL TWICE DAILY Qty = 60 New: Apixaban (Eliquis) 2.5 MG TABLET 1 Tablet ORAL TWICE DAILY Qty = 60 Instructions: . Comments: Last Taken: 03/13/18 Time: 9 AM Copies To: Adama Cabral MD
== END 2018-03-13 12:20 | disposition home health service (06) | DRG 641 ==
LOC: ERH 14:19 → 2NB 17:42 → ERHI 17:42 → ENRESERV 18:35 → ENTRNSPT 19:11 → EDTRNSPTSTS 19:23 → EDTRNSPT 19:23 → 2NB 19:33 → CMPTRNSPT 19:46 → 2NB 03-10 07:24 → ENPENDDIS 03-13 11:10 → EDTRNSPT 03-13 12:09 → EDTRNSPTSTS 03-13 12:09 → ENTRNSPT 03-13 12:09 → 2NB 03-13 12:20 → CMPTRNSPT 03-13 12:33
PROVIDERS: Physician Assistant
DX: E87.1 Hypo-osmolality and hyponatremia (principal); N39.0 Urinary tract infection, site not specified; I48.2 Chronic atrial fibrillation; E11.9 Type 2 diabetes mellitus without complications; F03.90 Unspecified dementia, unspecified severity, without behavioral disturbance, psychotic disturbance, mood disturbance, and anxiety; R42 Dizziness and giddiness; F41.9 Anxiety disorder, unspecified; K21.9 Gastro-esophageal reflux disease without esophagitis; D72.829 Elevated white blood cell count, unspecified; R10.31 Right lower quadrant pain; E78.5 Hyperlipidemia, unspecified; B96.20 Unspecified Escherichia coli [E. coli] as the cause of diseases classified elsewhere; K58.9 Irritable bowel syndrome, unspecified; R63.4 Abnormal weight loss; Z68.20 Body mass index [BMI] 20.0-20.9, adult; I10 Essential (primary) hypertension; Z79.01 Long term (current) use of anticoagulants; Z90.710 Acquired absence of both cervix and uterus; Z79.84 Long term (current) use of oral hypoglycemic drugs; Z90.49 Acquired absence of other specified parts of digestive tract
CPT/HCPCS: 2NBP; 84133; 84300; 36415; 36592; 74176; 81001; 82436; 82570; 87086; 93005; 93010; 96374; J0696; J3101; J3490